=== PATIENT | female | born 1945 ===

== ENCOUNTER 2019-11-28 17:34 | Inpatient (IN) | payer MEDICARE ==
[2019-11-28] MEDS ORDERED: ZIPRASIDONE MESYLATE 20 MG VIAL IM PRN (18:14)
[2019-11-28] MEDS: traZODone 50 MG TAB PO SCH (23:22)
[2019-11-29 05:18] LABS: Bacteria,Urine 1+ /HPF (Negative); Bilirubin,Urine NEG (Negative); Blood,Urine SM (Negative); Color,Urine Yellow (Yellow); Hyaline Casts,Urine 8 /LPF; Mucus,Urine 2+ /HPF; Protein,Urine <15 mg/dL mg/dL (Negative); Urobilinogen,Urine < 2.0 mg/dL (<2.0)
[2019-11-29 05:24] LABS: Hematocrit 36.6 % (30.3-42.9); Hemoglobin 12.1 gm/dl (10.1-14.3); Mean Corpuscular HGB Conc 33 % (30-34); Mean Corpuscular Volume 89 fl (79-97); Red Blood Count 4.11 M/mm3 (3.65-5.03); Red Cell Distribution Width 15.3 % (13.2-15.2)
[2019-11-29 05:45] LABS: Platelet Count 219 K/mm3 (140-440)
[2019-11-29 06:06] LABS: Alanine Aminotransferase 29 units/L (7-56); Albumin 3.4 g/dL (3.9-5); BUN/Creatinine Ratio 10; Blood Urea Nitrogen 9 mg/dL (7-17); Calcium 8.9 mg/dL (8.4-10.2); Chol/HDL Ratio 3.97 %; HDL Cholesterol 44 mg/dL (40-59); Hemolysis Index 23; LDL Cholesterol,Direct 115 mg/dL (50-130)
[2019-11-29 06:36] LABS: Total Cells Counted 100
[2019-11-29 06:37] LABS: Ovalocytes Rare; Platelet Estimate Consistent w Auto
--- NOTE | 2019-11-29 08:08 | Consultation ---
History of Present Illness - Reason for Consult Consult date: 11/29/19 medical mx - History of Present Illness 73 y/o AA/ Finnish Female presented to the hospital with complaints of AMS with SI. Per referral; source, pt was found unresponsive at home with suspected suicide attempt as empty bottle of 3 days Lisinopril that was recently filled was found in the house. When patient was asked about that she stated that she forgot to take her medications in the morning so she decided to double her dose at night. Then she does not know what happened afterwards. Patient currently resting comfortably without any distress, denies any acute issue. Denies any suicidal ideation or any homicidal ideation. PMH of HTN, Anxiety, TIA in 2019, Surgical hx/o bilateral cataract. Family history: Unknown Social history: Lives with daughter, no history of smoking drinking or alcohol abuse. Review of System: Constitutional: no fever, no chills, no weight loss Ears, eyes, nose, mouth and throat: no nasal congestion, no nasal discharge, no sinus pressure, no vision change, no red eye. Neck: No neck pain or rigidity. Cardiovascular: No chest pain, no orthopnea, no palpitations, no leg swelling Respiratory: No shortness of breath, no cough, no congestion, no wheezing Gastrointestinal: no abdominal pain, no nausea, no vomiting Genitourinary : no dysuria, no hematuria Musculoskeletal: no joint swelling or muscle ache Integumentary: no rash, no pruritis Neurological: no parathesias, no numbness, no tingling Endocrine: no cold or heat intolerance, no polyuria or polydipsia Hematologic/Lymphatic: no easy bruising, no easy bleeding, no gland swelling Allergic/Immunologic: no urticaria, no angioedema. Medications and Allergies Allergies Allergy/AdvReac Type Severity Reaction Status Date / Time No Known Allergies Allergy Verified 11/28/19 18:05 Home Medications Medication Instructions Recorded Confirmed Last Taken Type Aspirin 81 mg PO DAILY 11/29/19 11/29/19 11/28/19 09:00 History Mirtazapine Solutab 15 tab PO HS 11/29/19 11/29/19 Unknown History NIFEdipine [Procardia Xl] 30 mg PO DAILY 11/29/19 11/29/19 11/28/19 09:00 History Restoril 7.5 mg PO HS PRN 11/29/19 11/29/19 Unknown History Active Meds: Active Medications Trazodone HCl (Desyrel) 50 mg PO QHS [facility] Last Admin: 11/28/19 23:22 Dose: 50 mg Documented by: Ziprasidone (Geodon) 10 mg IM Q6H PRN PRN Reason: Agitation Exam - Physical Exam Narrative exam: GENERAL: well-developed and well-nourished elderly -[place] female lying on bed appeared to be in no discomfort. HEENT: Normocephalic. Atraumatic. No conjunctival congestion or icterus. Patient has moist mucous membranes. NECK: Supple. Trachea midline. CHEST/LUNGS: Clear to auscultated bilaterally, breathing nonlabored. No wheezes crackles or rhonchi. HEART/CARDIOVASCULAR: Regular in rate and rhythm. S1 and S2 positive. ABDOMEN: Abdomen is soft, nontender. Patient has normal bowel sounds. SKIN: There is no rash. Warm and dry. NEURO: No focal motor deficit. Follows command. Oriented to self only MUSCULOSKELETAL: No joint effusion or tenderness. EXTRIMITY: No edema, no cyanosis or clubbing. PSYCH: Cooperative. - Constitutional Vitals: Temp Pulse Resp BP Pulse Ox 98.5 F 77 20 151/77 98 11/28/19 23:50 11/28/19 23:50 11/28/19 23:50 11/28/19 23:50 11/28/19 23:50 Results - Labs CBC & Chem 7: 11/29/19 04:59 11/29/19 04:59 Labs: Abnormal lab results 11/28/19 11/29/19 11/29/19 Range/Units 23:37 04:59 04:59 RDW 15.3 H (13.2-15.2) % Seg Neuts % (Manual) 34.0 L (40.0-70.0) % Lymphocytes % (Manual) 54.0 H (13.4-35.0) % Monocytes % (Manual) 10.0 H (0.0-7.3) % Seg Neutrophils # Man 1.7 L (1.8-7.7) K/mm3 POC Glucose 121 H (70-105) Total Protein 6.2 L (6.3-8.2) g/dL Albumin 3.4 L (3.9-5) g/dL Assessment and Plan Suicidal attempt/suicidal ideation -Management per primary Medication overdose, likely unintentional -Please rule out underlying dementia, provide supportive care Hypertension, continue home medicine. Can add lisinopril if SBP remains greater than 150 History of TIA, continue baby aspirin and low-dose statin DVT prophylaxis, ambulatory
[2019-11-29] MEDS ORDERED: RESTORIL 7.5 MG PO PRN (09:33)
[2019-11-29] MEDS ORDERED: ASPIRIN EC 81 MG TAB PO SCH (10:00)
[2019-11-29] MEDS: NIFEdipine XL 30 MG TAB PO SCH (10:28)
[2019-11-29] MEDS: ASPIRIN EC 81 MG TAB PO SCH (10:28)
[2019-11-29] MEDS: MIRTAZAPINE 15 MG TAB PO SCH (21:16)
[2019-11-29] MEDS: traZODone 50 MG TAB PO SCH (21:16)
[2019-11-29] MEDS ORDERED: TEMAZEPAM 15 MG CAP PO PRN (22:00)
--- NOTE | 2019-11-30 09:11 | History and Physical Report ---
GP History & Physical - History of Present Illness Date of admission: 11/28/19 Date of Examination: 11/29/19 Reason for Admission: Danger to self History of Present Illness: Satya Lua is a 73y/o female patient who was admitted into the hospital for suicide attempt by overdose. During my interview with the patient she was lying in bed. Awake. Calm and cooperative. She makes poor eye contact. She's a/o x 2. She's speaking at a barely audible tone. She is a poor historian. She describes her mood as "better." She says she was "brought to the hospital for medicine." She then says "my family didn't tell me why." She denies SI/HI, she replies, "no I want to live. I love Valentino." She holds up her Bible and points to the scriptures. She denies any illicit drug use. She replies, "no drugs, never." The patient says she sleeps "well" and her appetite is "good." She could not provide any past psychiatric history. PAST PSYCHIATRIC HISTORY: Unable to obtain PAST MEDICAL HISTORY: None reported Family Psychiatric History: None reported or documented SOCIAL HISTORY Unable to provide REVIEW OF SYSTEMS Constitutional: Negative for weight loss ENT: Negative for stridor Respiratory: Negative for cough or hemoptysis All other systems reviewed and are negative MENTAL STATUS EXAMINATION General Appearance: Dressed appropriately Behavior: Calm, cooperative. Mood: "better" Affect: Congruent with stated mood Speech: Normal tone and pace Thought Process: Goal oriented Thought Content: Suicidal Ideation: Denies Homicidal Ideation: Denies Hallucinations: Denies Delusions: None elicited Insight and Judgment: Limited Memory/Cognition: Limited Assessment Major Depressive Disorder, Severe, Without Psychotic Features Treatment Plan Patient will be admitted for inpatient psychiatric evaluation, medication adjustment and close monitoring The patient's behavior, mood, sleep and appetite will be closely monitored. Patient will be enrolled in individual and group therapeutic sessions and encouraged to attend. Patient will be provided with a safe and structured environment. Patient's physical health needs will be addressed by the Hospitalist. Hospitalist Consulted Labs including CBC, CMP, Lipid profile and Hemoglobin A1C ordered Social Assessment will be completed and the Rabbit Dresser will work with patient and family to ensure a suitable and safe disposition Medication adjustment will be made as clinically indicated Usual Wellness Hinduism/Preservation: Restarted Home medications The patient agreed on the treatment plan, understood the risk, benefit, alternative treatment, potential consequence of no treatment, and gave informed consent. - Certification Statement This is an acknowledgement statement that Satya Lua is a 73y/o female who requires inpatient psychiatric admission for treatment which could reasonably be expected to improve the patient's condition for Major Depressive Disorder. Estimated period of time patient will need to remain in the hospital: [7] Plan for post-hospital care: [ Outpatient] Legal Status: Voluntary Reaction to Hospitalization: Accepting Medications and Allergies Allergies Allergy/AdvReac Type Severity Reaction Status Date / Time No Known Allergies Allergy Verified 11/28/19 18:05 Home Medications Medication Instructions Recorded Confirmed Last Taken Type Aspirin 81 mg PO DAILY 11/29/19 11/29/19 11/28/19 09:00 History Mirtazapine Solutab 15 tab PO HS 11/29/19 11/29/19 Unknown History NIFEdipine [Procardia Xl] 30 mg PO DAILY 11/29/19 11/29/19 11/28/19 09:00 History Restoril 7.5 mg PO HS PRN 11/29/19 11/29/19 Unknown History Active Meds: Active Medications Aspirin (Halfprin Ec) 81 mg PO QDAY [facility] Last Admin: 11/29/19 10:28 Dose: 81 mg Documented by: Mirtazapine (Remeron) 15 mg PO QHS [facility] Last Admin: 11/29/19 21:16 Dose: 15 mg Documented by: Nifedipine (Procardia Xl) 30 mg PO DAILY [facility] Last Admin: 11/29/19 10:28 Dose: 30 mg Documented by: Temazepam (Restoril) 15 mg PO QHS PRN PRN Reason: Sleep Trazodone HCl (Desyrel) 50 mg PO QHS [facility] Last Admin: 11/29/19 21:16 Dose: 50 mg Documented by: Ziprasidone (Geodon) 10 mg IM Q6H PRN PRN Reason: Agitation Results - Results Labs/Vitals: Laboratory Last Values WBC 5.0 K/mm3 (4.5-11.0) 11/29/19 04:59 RBC 4.11 M/mm3 (3.65-5.03) 11/29/19 04:59 Hgb 12.1 gm/dl (10.1-14.3) 11/29/19 04:59 Hct 36.6 % (30.3-42.9) 11/29/19 04:59 MCV 89 fl (79-97) 11/29/19 04:59 MCH 29 pg (28-32) 11/29/19 04:59 MCHC 33 % (30-34) 11/29/19 04:59 RDW 15.3 % (13.2-15.2) H 11/29/19 04:59 Plt Count 219 K/mm3 (140-440) 11/29/19 04:59 Lymph % (Auto) [employer] 11/29/19 04:59 Add Manual Diff Complete 11/29/19 04:59 Total Counted 100 11/29/19 04:59 Seg Neutrophils % Supervisor [employer] 11/29/19 04:59 Seg Neuts % (Manual) 34.0 % (40.0-70.0) L 11/29/19 04:59 Band Neutrophils % 0 % 11/29/19 04:59 Lymphocytes % (Manual) 54.0 % (13.4-35.0) H 11/29/19 04:59 Reactive Lymphs % (Man) 0 % 11/29/19 04:59 Monocytes % (Manual) 10.0 % (0.0-7.3) H 11/29/19 04:59 Eosinophils % (Manual) 1.0 % (0.0-4.3) 11/29/19 04:59 Basophils % (Manual) 1.0 % (0.0-1.8) 11/29/19 04:59 Metamyelocytes % 0 % 11/29/19 04:59 Myelocytes % 0 % 11/29/19 04:59 Promyelocytes % 0 % 11/29/19 04:59 Blast Cells % 0 % 11/29/19 04:59 Nucleated RBC % Not Reportable 11/29/19 04:59 Seg Neutrophils # Man 1.7 K/mm3 (1.8-7.7) L 11/29/19 04:59 Band Neutrophils # 0.0 K/mm3 11/29/19 04:59 Lymphocytes # (Manual) 2.7 K/mm3 (1.2-5.4) 11/29/19 04:59 Abs React Lymphs (Man) 0.0 K/mm3 11/29/19 04:59 Monocytes # (Manual) 0.5 K/mm3 (0.0-0.8) 11/29/19 04:59 Eosinophils # (Manual) 0.1 K/mm3 (0.0-0.4) 11/29/19 04:59 Basophils # (Manual) 0.1 K/mm3 (0.0-0.1) 11/29/19 04:59 Metamyelocytes # 0.0 K/mm3 11/29/19 04:59 Myelocytes # 0.0 K/mm3 11/29/19 04:59 Promyelocytes # 0.0 K/mm3 11/29/19 04:59 Blast Cells # 0.0 K/mm3 11/29/19 04:59 WBC Morphology Not Reportable 11/29/19 04:59 Hypersegmented Neuts Not Reportable 11/29/19 04:59 Hyposegmented Neuts Not Reportable 11/29/19 04:59 Hypogranular Neuts Not Reportable 11/29/19 04:59 Smudge Cells Not Reportable 11/29/19 04:59 Toxic Granulation Not Reportable 11/29/19 04:59 Toxic Vacuolation Not Reportable 11/29/19 04:59 Dohle Bodies Not Reportable 11/29/19 04:59 Pelger-Huet Anomaly Not Reportable 11/29/19 04:59 Herlinda Rods Not Reportable 11/29/19 04:59 Platelet Estimate Consistent w auto 11/29/19 04:59 Clumped Platelets Not Reportable 11/29/19 04:59 Plt Clumps, EDTA Not Reportable 11/29/19 04:59 Large Platelets Not Reportable 11/29/19 04:59 Giant Platelets Not Reportable 11/29/19 04:59 Platelet Satelliting Not Reportable 11/29/19 04:59 Plt Morphology Comment Not Reportable 11/29/19 04:59 RBC Morphology Not Reportable 11/29/19 04:59 Dimorphic RBCs Not Reportable 11/29/19 04:59 Polychromasia Not Reportable 11/29/19 04:59 Hypochromasia Not Reportable 11/29/19 04:59 Poikilocytosis Not Reportable 11/29/19 04:59 Anisocytosis Not Reportable 11/29/19 04:59 Microcytosis Not Reportable 11/29/19 04:59 Macrocytosis Not Reportable 11/29/19 04:59 Spherocytes Not Reportable 11/29/19 04:59 Pappenheimer Bodies Not Reportable 11/29/19 04:59 Sickle Cells Not Reportable 11/29/19 04:59 Target Cells Not Reportable 11/29/19 04:59 Tear Drop Cells Not Reportable 11/29/19 04:59 Ovalocytes Rare 11/29/19 04:59 Helmet Cells Not Reportable 11/29/19 04:59 [place] Bodies Not Reportable 11/29/19 04:59 [place] Rings Not Reportable 11/29/19 04:59 [place] Cells Not Reportable 11/29/19 04:59 Bite Cells Not Reportable 11/29/19 04:59 Crenated Cell Not Reportable 11/29/19 04:59 Elliptocytes Not Reportable 11/29/19 04:59 Acanthocytes (Spur) Not Reportable 11/29/19 04:59 Rouleaux Not Reportable 11/29/19 04:59 Hemoglobin C Crystals Not Reportable 11/29/19 04:59 Schistocytes Not Reportable 11/29/19 04:59 Malaria parasites Not Reportable 11/29/19 04:59 Eleazar Bodies Not Reportable 11/29/19 04:59 Hem Pathologist Commnt No 11/29/19 04:59 Sodium 141 mmol/L (137-145) 11/29/19 04:59 Potassium 4.2 mmol/L (3.6-5.0) 11/29/19 04:59 Chloride 104.8 mmol/L (98-107) 11/29/19 04:59 Carbon Dioxide 24 mmol/L (22-30) 11/29/19 04:59 Anion Gap 16 mmol/L 11/29/19 04:59 BUN 9 mg/dL (7-17) 11/29/19 04:59 Creatinine 0.9 mg/dL (0.7-1.2) 11/29/19 04:59 Estimated GFR > 60 ml/min 11/29/19 04:59 BUN/Creatinine Ratio 10 % 11/29/19 04:59 Glucose 88 mg/dL (65-100) 11/29/19 04:59 POC Glucose 121 (70-105) H 11/28/19 23:37 Hemoglobin A1c 5.6 % (4-6) 11/29/19 04:59 Calcium 8.9 mg/dL (8.4-10.2) 11/29/19 04:59 Total Bilirubin 0.40 mg/dL (0.1-1.2) 11/29/19 04:59 AST 39 units/L (5-40) 11/29/19 04:59 ALT 29 units/L (7-56) 11/29/19 04:59 Alkaline Phosphatase 70 units/L (35-129) 11/29/19 04:59 Total Protein 6.2 g/dL (6.3-8.2) L 11/29/19 04:59 Albumin 3.4 g/dL (3.9-5) L 11/29/19 04:59 Albumin/Globulin Ratio 1.2 % 11/29/19 04:59 Triglycerides 88 mg/dL (2-149) 11/29/19 04:59 Cholesterol 175 mg/dL (50-199) 11/29/19 04:59 LDL Cholesterol Direct 115 mg/dL (50-130) 11/29/19 04:59 HDL Cholesterol 44 mg/dL (40-59) 11/29/19 04:59 Cholesterol/HDL Ratio 3.97 % 11/29/19 04:59 TSH 2.090 mlU/mL (0.270-4.200) 11/29/19 04:59 Urine Color Yellow (Yellow) 11/29/19 04:20 Urine Turbidity Clear (Clear) 11/29/19 04:20 Urine pH 5.0 (5.0-7.0) 11/29/19 04:20 Ur Specific [place] 1.013 (1.003-1.030) 11/29/19 04:20 Urine Protein <15 mg/dl mg/dL (Negative) 11/29/19 04:20 Urine Glucose (UA) Neg mg/dL (Negative) 11/29/19 04:20 Urine Ketones Neg mg/dL (Negative) 11/29/19 04:20 Urine Blood Sm (Negative) 11/29/19 04:20 Urine Nitrite Neg (Negative) 11/29/19 04:20 Urine Bilirubin Neg (Negative) 11/29/19 04:20 Urine Urobilinogen < 2.0 mg/dL (<2.0) 11/29/19 04:20 Ur Leukocyte Esterase Neg (Negative) 11/29/19 04:20 Urine WBC (Auto) 4.0 /HPF (0.0-6.0) 11/29/19 04:20 Urine RBC (Auto) 3.0 /HPF (0.0-6.0) 11/29/19 04:20 U Epithel Cells (Auto) 4.0 /HPF (0-13.0) 11/29/19 04:20 Urine Bacteria (Auto) 1+ /HPF (Negative) 11/29/19 04:20 Hyaline Casts 8 /LPF 11/29/19 04:20 Urine Mucus 2+ /HPF 11/29/19 04:20 Last Vital Signs Temp 98.6 F 11/29/19 22:00 Pulse 77 11/29/19 22:00 Resp 18 11/29/19 22:00 BP 145/68 11/29/19 22:00 Pulse Ox 97 11/29/19 22:00 Physical Examination - Constitutional Vitals: Vital Signs Temp Pulse Resp BP Pulse Ox 98.6 F 77 18 145/68 97 11/29/19 22:00 11/29/19 22:00 11/29/19 22:00 11/29/19 22:00 11/29/19 22:00 Temperature -Last 24 Hours Temperature 98.6 F Temperature 98.6 F Mental Status Exam - Vital signs Last Vital Signs Temp 98.6 F 11/29/19 22:00 Pulse 77 11/29/19 22:00 Resp 18 11/29/19 22:00 BP 145/68 11/29/19 22:00 Pulse Ox 97 11/29/19 22:00 Physician Certification - Certification Statement Physician Certification Statement: This is an acknowledgement statement that SATYA LUA is a 73 year old F who requires inpatient psychiatric admission for treatment which could reasonably be expected to improve the patient's condition for Estimated period of time patient will need to remain in the hospital: [ ] Plan for post-hospital care: [ ]
--- NOTE | 2019-11-30 09:39 | Progress Note ---
Subjective Date of service: 11/30/19 Principal diagnosis: Major Depressive Disorder Subjective Comment: During my interview with the patient today, she was sitting in the dayroom. She is a/o x 2. She is calm and cooperative. She appears withdrawn, but is more talkative today. Her affect is flat. Her tone is low The patient says her "head is hilario hazy," when asked how she was feeling. She says, "I feel tired." She says she "slept well after they gave me some medicine." She states to me, "I w ant to go home or to my daughter's house." When asking the patient about why she came to the hospital, she says "I needed medicine to get better." When asking the patient about coming here because she was wanting to harm herself, she states, "that was then." She denies SI/HI at the moment stating, "I don't feel sad. I want to live." The patient denies hallucinations of any kind. Reason for continued inpatient treatment: The patient is depressed with recent suicide attempt, and unable to care for herself PAST PSYCHIATRIC HISTORY: Unable to obtain PAST MEDICAL HISTORY: None reported Family Psychiatric History: None reported or documented SOCIAL HISTORY Unable to provide REVIEW OF SYSTEMS Constitutional: Negative for weight loss ENT: Negative for stridor Respiratory: Negative for cough or hemoptysis All other systems reviewed and are negative MENTAL STATUS EXAMINATION General Appearance: Dressed appropriately Behavior: Calm, cooperative. Poor eye contact Mood: "better" Affect: Flat Speech: Low tone Thought Process: Goal oriented Thought Content: Suicidal Ideation: Denies at the moment Homicidal Ideation: Denies Hallucinations: Denies Delusions: None elicited Insight and Judgment: Limited Memory/Cognition: Limited Assessment Major Depressive Disorder, Severe, Without Psychotic Features Treatment Plan Patient will be admitted for inpatient psychiatric evaluation, medication adjustment and close monitoring The patient's behavior, mood, sleep and appetite will be closely monitored. Patient will be enrolled in individual and group therapeutic sessions and encouraged to attend. Patient will be provided with a safe and structured environment. Patient's physical health needs will be addressed by the Hospitalist. Hospitalist Consulted Labs including CBC, CMP, Lipid profile and Hemoglobin A1C ordered Social Assessment will be completed and the Desktop Publishing Associate will work with patient and family to ensure a suitable and safe disposition Medication adjustment will be made as clinically indicated Usual Wellness Hinduism/Preservation: Zoloft 25mg po daily The patient agreed on the treatment plan, understood the risk, benefit, alternative treatment, potential consequence of no treatment, and gave informed consent. ELOS 6 days post discharge, outpatient treatment Medications and Allergies Allergies Allergy/AdvReac Type Severity Reaction Status Date / Time No Known Allergies Allergy Verified 11/28/19 18:05 Home Medications Medication Instructions Recorded Confirmed Last Taken Type Aspirin 81 mg PO DAILY 11/29/19 11/29/19 11/28/19 09:00 History Mirtazapine Solutab 15 tab PO HS 11/29/19 11/29/19 Unknown History NIFEdipine [Procardia Xl] 30 mg PO DAILY 11/29/19 11/29/19 11/28/19 09:00 History Restoril 7.5 mg PO HS PRN 11/29/19 11/29/19 Unknown History Active Meds: Active Medications Aspirin (Halfprin Ec) 81 mg PO QDAY [facility] Last Admin: 11/29/19 10:28 Dose: 81 mg Documented by: Mirtazapine (Remeron) 15 mg PO QHS [facility] Last Admin: 11/29/19 21:16 Dose: 15 mg Documented by: Nifedipine (Procardia Xl) 30 mg PO DAILY [facility] Last Admin: 11/29/19 10:28 Dose: 30 mg Documented by: Sertraline HCl (Zoloft) 25 mg PO QDAY [facility] Temazepam (Restoril) 15 mg PO QHS PRN PRN Reason: Sleep Trazodone HCl (Desyrel) 50 mg PO QHS [facility] Last Admin: 11/29/19 21:16 Dose: 50 mg Documented by: Ziprasidone (Geodon) 10 mg IM Q6H PRN PRN Reason: Agitation Results - Results Labs/Vitals: Laboratory Last Values WBC 5.0 K/mm3 (4.5-11.0) 11/29/19 04:59 RBC 4.11 M/mm3 (3.65-5.03) 11/29/19 04:59 Hgb 12.1 gm/dl (10.1-14.3) 11/29/19 04:59 Hct 36.6 % (30.3-42.9) 11/29/19 04:59 MCV 89 fl (79-97) 11/29/19 04:59 MCH 29 pg (28-32) 11/29/19 04:59 MCHC 33 % (30-34) 11/29/19 04:59 RDW 15.3 % (13.2-15.2) H 11/29/19 04:59 Plt Count 219 K/mm3 (140-440) 11/29/19 04:59 Lymph % (Auto) Linen Keeper 11/29/19 04:59 Add Manual Diff Complete 11/29/19 04:59 Total Counted 100 11/29/19 04:59 Seg Neutrophils % Linen Keeper 11/29/19 04:59 Seg Neuts % (Manual) 34.0 % (40.0-70.0) L 11/29/19 04:59 Band Neutrophils % 0 % 11/29/19 04:59 Lymphocytes % (Manual) 54.0 % (13.4-35.0) H 11/29/19 04:59 Reactive Lymphs % (Man) 0 % 11/29/19 04:59 Monocytes % (Manual) 10.0 % (0.0-7.3) H 11/29/19 04:59 Eosinophils % (Manual) 1.0 % (0.0-4.3) 11/29/19 04:59 Basophils % (Manual) 1.0 % (0.0-1.8) 11/29/19 04:59 Metamyelocytes % 0 % 11/29/19 04:59 Myelocytes % 0 % 11/29/19 04:59 Promyelocytes % 0 % 11/29/19 04:59 Blast Cells % 0 % 11/29/19 04:59 Nucleated RBC % Not Reportable 11/29/19 04:59 Seg Neutrophils # Man 1.7 K/mm3 (1.8-7.7) L 11/29/19 04:59 Band Neutrophils # 0.0 K/mm3 11/29/19 04:59 Lymphocytes # (Manual) 2.7 K/mm3 (1.2-5.4) 11/29/19 04:59 Abs React Lymphs (Man) 0.0 K/mm3 11/29/19 04:59 Monocytes # (Manual) 0.5 K/mm3 (0.0-0.8) 11/29/19 04:59 Eosinophils # (Manual) 0.1 K/mm3 (0.0-0.4) 11/29/19 04:59 Basophils # (Manual) 0.1 K/mm3 (0.0-0.1) 11/29/19 04:59 Metamyelocytes # 0.0 K/mm3 11/29/19 04:59 Myelocytes # 0.0 K/mm3 11/29/19 04:59 Promyelocytes # 0.0 K/mm3 11/29/19 04:59 Blast Cells # 0.0 K/mm3 11/29/19 04:59 WBC Morphology Not Reportable 11/29/19 04:59 Hypersegmented Neuts Not Reportable 11/29/19 04:59 Hyposegmented Neuts Not Reportable 11/29/19 04:59 Hypogranular Neuts Not Reportable 11/29/19 04:59 Smudge Cells Not Reportable 11/29/19 04:59 Toxic Granulation Not Reportable 11/29/19 04:59 Toxic Vacuolation Not Reportable 11/29/19 04:59 Dohle Bodies Not Reportable 11/29/19 04:59 Pelger-Huet Anomaly Not Reportable 11/29/19 04:59 Herlinda Rods Not Reportable 11/29/19 04:59 Platelet Estimate Consistent w auto 11/29/19 04:59 Clumped Platelets Not Reportable 11/29/19 04:59 Plt Clumps, EDTA Not Reportable 11/29/19 04:59 Large Platelets Not Reportable 11/29/19 04:59 Giant Platelets Not Reportable 11/29/19 04:59 Platelet Satelliting Not Reportable 11/29/19 04:59 Plt Morphology Comment Not Reportable 11/29/19 04:59 RBC Morphology Not Reportable 11/29/19 04:59 Dimorphic RBCs Not Reportable 11/29/19 04:59 Polychromasia Not Reportable 11/29/19 04:59 Hypochromasia Not Reportable 11/29/19 04:59 Poikilocytosis Not Reportable 11/29/19 04:59 Anisocytosis Not Reportable 11/29/19 04:59 Microcytosis Not Reportable 11/29/19 04:59 Macrocytosis Not Reportable 11/29/19 04:59 Spherocytes Not Reportable 11/29/19 04:59 Pappenheimer Bodies Not Reportable 11/29/19 04:59 Sickle Cells Not Reportable 11/29/19 04:59 Target Cells Not Reportable 11/29/19 04:59 Tear Drop Cells Not Reportable 11/29/19 04:59 Ovalocytes Rare 11/29/19 04:59 Helmet Cells Not Reportable 11/29/19 04:59 [place] Bodies Not Reportable 11/29/19 04:59 [place] Rings Not Reportable 11/29/19 04:59 [place] Cells Not Reportable 11/29/19 04:59 Bite Cells Not Reportable 11/29/19 04:59 Crenated Cell Not Reportable 11/29/19 04:59 Elliptocytes Not Reportable 11/29/19 04:59 Acanthocytes (Spur) Not Reportable 11/29/19 04:59 Rouleaux Not Reportable 11/29/19 04:59 Hemoglobin C Crystals Not Reportable 11/29/19 04:59 Schistocytes Not Reportable 11/29/19 04:59 Malaria parasites Not Reportable 11/29/19 04:59 Eleazar Bodies Not Reportable 11/29/19 04:59 Hem Pathologist Commnt No 11/29/19 04:59 Sodium 141 mmol/L (137-145) 11/29/19 04:59 Potassium 4.2 mmol/L (3.6-5.0) 11/29/19 04:59 Chloride 104.8 mmol/L (98-107) 11/29/19 04:59 Carbon Dioxide 24 mmol/L (22-30) 11/29/19 04:59 Anion Gap 16 mmol/L 11/29/19 04:59 BUN 9 mg/dL (7-17) 11/29/19 04:59 Creatinine 0.9 mg/dL (0.7-1.2) 11/29/19 04:59 Estimated GFR > 60 ml/min 11/29/19 04:59 BUN/Creatinine Ratio 10 % 11/29/19 04:59 Glucose 88 mg/dL (65-100) 11/29/19 04:59 POC Glucose 121 (70-105) H 11/28/19 23:37 Hemoglobin A1c 5.6 % (4-6) 11/29/19 04:59 Calcium 8.9 mg/dL (8.4-10.2) 11/29/19 04:59 Total Bilirubin 0.40 mg/dL (0.1-1.2) 11/29/19 04:59 AST 39 units/L (5-40) 11/29/19 04:59 ALT 29 units/L (7-56) 11/29/19 04:59 Alkaline Phosphatase 70 units/L (35-129) 11/29/19 04:59 Total Protein 6.2 g/dL (6.3-8.2) L 11/29/19 04:59 Albumin 3.4 g/dL (3.9-5) L 11/29/19 04:59 Albumin/Globulin Ratio 1.2 % 11/29/19 04:59 Triglycerides 88 mg/dL (2-149) 11/29/19 04:59 Cholesterol 175 mg/dL (50-199) 11/29/19 04:59 LDL Cholesterol Direct 115 mg/dL (50-130) 11/29/19 04:59 HDL Cholesterol 44 mg/dL (40-59) 11/29/19 04:59 Cholesterol/HDL Ratio 3.97 % 11/29/19 04:59 TSH 2.090 mlU/mL (0.270-4.200) 11/29/19 04:59 Urine Color Yellow (Yellow) 11/29/19 04:20 Urine Turbidity Clear (Clear) 11/29/19 04:20 Urine pH 5.0 (5.0-7.0) 11/29/19 04:20 Ur Specific [place] 1.013 (1.003-1.030) 11/29/19 04:20 Urine Protein <15 mg/dl mg/dL (Negative) 11/29/19 04:20 Urine Glucose (UA) Neg mg/dL (Negative) 11/29/19 04:20 Urine Ketones Neg mg/dL (Negative) 11/29/19 04:20 Urine Blood Sm (Negative) 11/29/19 04:20 Urine Nitrite Neg (Negative) 11/29/19 04:20 Urine Bilirubin Neg (Negative) 11/29/19 04:20 Urine Urobilinogen < 2.0 mg/dL (<2.0) 11/29/19 04:20 Ur Leukocyte Esterase Neg (Negative) 11/29/19 04:20 Urine WBC (Auto) 4.0 /HPF (0.0-6.0) 11/29/19 04:20 Urine RBC (Auto) 3.0 /HPF (0.0-6.0) 11/29/19 04:20 U Epithel Cells (Auto) 4.0 /HPF (0-13.0) 11/29/19 04:20 Urine Bacteria (Auto) 1+ /HPF (Negative) 11/29/19 04:20 Hyaline Casts 8 /LPF 11/29/19 04:20 Urine Mucus 2+ /HPF 11/29/19 04:20 Last Vital Signs Temp 98.6 F 11/29/19 22:00 Pulse 77 11/29/19 22:00 Resp 18 11/29/19 22:00 BP 145/68 11/29/19 22:00 Pulse Ox 97 11/29/19 22:00
[2019-11-30] MEDS: ASPIRIN EC 81 MG TAB PO SCH (10:37)
[2019-11-30] MEDS: NIFEdipine XL 30 MG TAB PO SCH (10:37)
[2019-11-30] MEDS: SERTRALINE 25 MG TAB PO SCH (10:37)
[2019-11-30] MEDS: MIRTAZAPINE 15 MG TAB PO SCH (21:37)
[2019-11-30] MEDS: traZODone 50 MG TAB PO SCH (21:37)
[2019-12-01] MEDS: NIFEdipine XL 30 MG TAB PO SCH (11:55)
[2019-12-01] MEDS: ASPIRIN EC 81 MG TAB PO SCH (11:55)
[2019-12-01] MEDS: SERTRALINE 25 MG TAB PO SCH (11:55)
[2019-12-01] MEDS: traZODone 50 MG TAB PO SCH (21:16)
[2019-12-01] MEDS: MIRTAZAPINE 15 MG TAB PO SCH (21:16)
--- NOTE | 2019-12-02 08:05 | Progress Note ---
Subjective Date of service: 12/02/19 Principal diagnosis: Major Depressive Disorder Subjective Comment: During my interview with the patient today, she is walking around in her room. She is smiling. She is a/o x 3. She makes good eye contact. She is calm and cooperative. She says she "slept well last night." The patient states "I feel better. I've been praying," when asked how she was doing. She denies SI/HI, stating "I love my life." When asked about the reason she was admitted, the patient stated, "I came here to feel better. I guess I took some pills." She denies hallucinations of any kind. Reason for continued inpatient treatment: The patient has improved, but at times seem to have some underlying depression. She is unable to care for herself REVIEW OF SYSTEMS Constitutional: Negative for weight loss ENT: Negative for stridor Respiratory: Negative for cough or hemoptysis All other systems reviewed and are negative MENTAL STATUS EXAMINATION General Appearance: Dressed appropriately Behavior: Calm, cooperative. Good eye contact Mood: "better" Affect: congruent with stated mood Speech: Low tone Thought Process: Goal oriented Thought Content: Suicidal Ideation: Denies Homicidal Ideation: Denies Hallucinations: Denies Delusions: None elicited Insight and Judgment: Limited Memory/Cognition: Limited Assessment Major Depressive Disorder, Severe, Without Psychotic Features Treatment Plan Patient will be admitted for inpatient psychiatric evaluation, medication adjustment and close monitoring The patient's behavior, mood, sleep and appetite will be closely monitored. Patient will be enrolled in individual and group therapeutic sessions and encouraged to attend. Patient will be provided with a safe and structured environment. Patient's physical health needs will be addressed by the Hospitalist. Hospitalist Consulted Labs including CBC, CMP, Lipid profile and Hemoglobin A1C ordered Social Assessment will be completed and the Finish Production Manager will work with patient and family to ensure a suitable and safe disposition Medication adjustment will be made as clinically indicated Usual Wellness Hindu/Preservation: Increased Zoloft 50mg po daily for underlying depression The patient agreed on the treatment plan, understood the risk, benefit, alternative treatment, potential consequence of no treatment, and gave informed consent. ELOS 4 days post discharge, outpatient treatment Medications and Allergies Allergies Allergy/AdvReac Type Severity Reaction Status Date / Time No Known Allergies Allergy Verified 11/28/19 18:05 Home Medications Medication Instructions Recorded Confirmed Last Taken Type Aspirin 81 mg PO DAILY 11/29/19 11/29/19 11/28/19 09:00 History Mirtazapine Solutab 15 tab PO HS 11/29/19 11/29/19 Unknown History NIFEdipine [Procardia Xl] 30 mg PO DAILY 11/29/19 11/29/19 11/28/19 09:00 History Restoril 7.5 mg PO HS PRN 11/29/19 11/29/19 Unknown History Active Meds: Active Medications Aspirin (Halfprin Ec) 81 mg PO QDAY [facility] Last Admin: 12/01/19 11:55 Dose: 81 mg Documented by: Mirtazapine (Remeron) 15 mg PO QHS [facility] Last Admin: 12/01/19 21:16 Dose: 15 mg Documented by: Nifedipine (Procardia Xl) 30 mg PO DAILY [facility] Last Admin: 12/01/19 11:55 Dose: 30 mg Documented by: Sertraline HCl (Zoloft) 25 mg PO QDAY [facility] Last Admin: 12/01/19 11:55 Dose: 25 mg Documented by: Temazepam (Restoril) 15 mg PO QHS PRN PRN Reason: Sleep Trazodone HCl (Desyrel) 50 mg PO QHS [facility] Last Admin: 12/01/19 21:16 Dose: 50 mg Documented by: Ziprasidone (Geodon) 10 mg IM Q6H PRN PRN Reason: Agitation Results - Results Labs/Vitals: Laboratory Last Values WBC 5.0 K/mm3 (4.5-11.0) 11/29/19 04:59 RBC 4.11 M/mm3 (3.65-5.03) 11/29/19 04:59 Hgb 12.1 gm/dl (10.1-14.3) 11/29/19 04:59 Hct 36.6 % (30.3-42.9) 11/29/19 04:59 MCV 89 fl (79-97) 11/29/19 04:59 MCH 29 pg (28-32) 11/29/19 04:59 MCHC 33 % (30-34) 11/29/19 04:59 RDW 15.3 % (13.2-15.2) H 11/29/19 04:59 Plt Count 219 K/mm3 (140-440) 11/29/19 04:59 Lymph % (Auto) Informatics Physician 11/29/19 04:59 Add Manual Diff Complete 11/29/19 04:59 Total Counted 100 11/29/19 04:59 Seg Neutrophils % Informatics Physician 11/29/19 04:59 Seg Neuts % (Manual) 34.0 % (40.0-70.0) L 11/29/19 04:59 Band Neutrophils % 0 % 11/29/19 04:59 Lymphocytes % (Manual) 54.0 % (13.4-35.0) H 11/29/19 04:59 Reactive Lymphs % (Man) 0 % 11/29/19 04:59 Monocytes % (Manual) 10.0 % (0.0-7.3) H 11/29/19 04:59 Eosinophils % (Manual) 1.0 % (0.0-4.3) 11/29/19 04:59 Basophils % (Manual) 1.0 % (0.0-1.8) 11/29/19 04:59 Metamyelocytes % 0 % 11/29/19 04:59 Myelocytes % 0 % 11/29/19 04:59 Promyelocytes % 0 % 11/29/19 04:59 Blast Cells % 0 % 11/29/19 04:59 Nucleated RBC % Not Reportable 11/29/19 04:59 Seg Neutrophils # Man 1.7 K/mm3 (1.8-7.7) L 11/29/19 04:59 Band Neutrophils # 0.0 K/mm3 11/29/19 04:59 Lymphocytes # (Manual) 2.7 K/mm3 (1.2-5.4) 11/29/19 04:59 Abs React Lymphs (Man) 0.0 K/mm3 11/29/19 04:59 Monocytes # (Manual) 0.5 K/mm3 (0.0-0.8) 11/29/19 04:59 Eosinophils # (Manual) 0.1 K/mm3 (0.0-0.4) 11/29/19 04:59 Basophils # (Manual) 0.1 K/mm3 (0.0-0.1) 11/29/19 04:59 Metamyelocytes # 0.0 K/mm3 11/29/19 04:59 Myelocytes # 0.0 K/mm3 11/29/19 04:59 Promyelocytes # 0.0 K/mm3 11/29/19 04:59 Blast Cells # 0.0 K/mm3 11/29/19 04:59 WBC Morphology Not Reportable 11/29/19 04:59 Hypersegmented Neuts Not Reportable 11/29/19 04:59 Hyposegmented Neuts Not Reportable 11/29/19 04:59 Hypogranular Neuts Not Reportable 11/29/19 04:59 Smudge Cells Not Reportable 11/29/19 04:59 Toxic Granulation Not Reportable 11/29/19 04:59 Toxic Vacuolation Not Reportable 11/29/19 04:59 Dohle Bodies Not Reportable 11/29/19 04:59 Pelger-Huet Anomaly Not Reportable 11/29/19 04:59 Herlinda Rods Not Reportable 11/29/19 04:59 Platelet Estimate Consistent w auto 11/29/19 04:59 Clumped Platelets Not Reportable 11/29/19 04:59 Plt Clumps, EDTA Not Reportable 11/29/19 04:59 Large Platelets Not Reportable 11/29/19 04:59 Giant Platelets Not Reportable 11/29/19 04:59 Platelet Satelliting Not Reportable 11/29/19 04:59 Plt Morphology Comment Not Reportable 11/29/19 04:59 RBC Morphology Not Reportable 11/29/19 04:59 Dimorphic RBCs Not Reportable 11/29/19 04:59 Polychromasia Not Reportable 11/29/19 04:59 Hypochromasia Not Reportable 11/29/19 04:59 Poikilocytosis Not Reportable 11/29/19 04:59 Anisocytosis Not Reportable 11/29/19 04:59 Microcytosis Not Reportable 11/29/19 04:59 Macrocytosis Not Reportable 11/29/19 04:59 Spherocytes Not Reportable 11/29/19 04:59 Pappenheimer Bodies Not Reportable 11/29/19 04:59 Sickle Cells Not Reportable 11/29/19 04:59 Target Cells Not Reportable 11/29/19 04:59 Tear Drop Cells Not Reportable 11/29/19 04:59 Ovalocytes Rare 11/29/19 04:59 Helmet Cells Not Reportable 11/29/19 04:59 [place] Bodies Not Reportable 11/29/19 04:59 [place] Rings Not Reportable 11/29/19 04:59 [place] Cells Not Reportable 11/29/19 04:59 Bite Cells Not Reportable 11/29/19 04:59 Crenated Cell Not Reportable 11/29/19 04:59 Elliptocytes Not Reportable 11/29/19 04:59 Acanthocytes (Spur) Not Reportable 11/29/19 04:59 Rouleaux Not Reportable 11/29/19 04:59 Hemoglobin C Crystals Not Reportable 11/29/19 04:59 Schistocytes Not Reportable 11/29/19 04:59 Malaria parasites Not Reportable 11/29/19 04:59 Eleazar Bodies Not Reportable 11/29/19 04:59 Hem Pathologist Commnt No 11/29/19 04:59 Sodium 141 mmol/L (137-145) 11/29/19 04:59 Potassium 4.2 mmol/L (3.6-5.0) 11/29/19 04:59 Chloride 104.8 mmol/L (98-107) 11/29/19 04:59 Carbon Dioxide 24 mmol/L (22-30) 11/29/19 04:59 Anion Gap 16 mmol/L 11/29/19 04:59 BUN 9 mg/dL (7-17) 11/29/19 04:59 Creatinine 0.9 mg/dL (0.7-1.2) 11/29/19 04:59 Estimated GFR > 60 ml/min 11/29/19 04:59 BUN/Creatinine Ratio 10 % 11/29/19 04:59 Glucose 88 mg/dL (65-100) 11/29/19 04:59 POC Glucose 121 (70-105) H 11/28/19 23:37 Hemoglobin A1c 5.6 % (4-6) 11/29/19 04:59 Calcium 8.9 mg/dL (8.4-10.2) 11/29/19 04:59 Total Bilirubin 0.40 mg/dL (0.1-1.2) 11/29/19 04:59 AST 39 units/L (5-40) 11/29/19 04:59 ALT 29 units/L (7-56) 11/29/19 04:59 Alkaline Phosphatase 70 units/L (35-129) 11/29/19 04:59 Total Protein 6.2 g/dL (6.3-8.2) L 11/29/19 04:59 Albumin 3.4 g/dL (3.9-5) L 11/29/19 04:59 Albumin/Globulin Ratio 1.2 % 11/29/19 04:59 Triglycerides 88 mg/dL (2-149) 11/29/19 04:59 Cholesterol 175 mg/dL (50-199) 11/29/19 04:59 LDL Cholesterol Direct 115 mg/dL (50-130) 11/29/19 04:59 HDL Cholesterol 44 mg/dL (40-59) 11/29/19 04:59 Cholesterol/HDL Ratio 3.97 % 11/29/19 04:59 TSH 2.090 mlU/mL (0.270-4.200) 11/29/19 04:59 Urine Color Yellow (Yellow) 11/29/19 04:20 Urine Turbidity Clear (Clear) 11/29/19 04:20 Urine pH 5.0 (5.0-7.0) 11/29/19 04:20 Ur Specific [place] 1.013 (1.003-1.030) 11/29/19 04:20 Urine Protein <15 mg/dl mg/dL (Negative) 11/29/19 04:20 Urine Glucose (UA) Neg mg/dL (Negative) 11/29/19 04:20 Urine Ketones Neg mg/dL (Negative) 11/29/19 04:20 Urine Blood Sm (Negative) 11/29/19 04:20 Urine Nitrite Neg (Negative) 11/29/19 04:20 Urine Bilirubin Neg (Negative) 11/29/19 04:20 Urine Urobilinogen < 2.0 mg/dL (<2.0) 11/29/19 04:20 Ur Leukocyte Esterase Neg (Negative) 11/29/19 04:20 Urine WBC (Auto) 4.0 /HPF (0.0-6.0) 11/29/19 04:20 Urine RBC (Auto) 3.0 /HPF (0.0-6.0) 11/29/19 04:20 U Epithel Cells (Auto) 4.0 /HPF (0-13.0) 11/29/19 04:20 Urine Bacteria (Auto) 1+ /HPF (Negative) 11/29/19 04:20 Hyaline Casts 8 /LPF 11/29/19 04:20 Urine Mucus 2+ /HPF 11/29/19 04:20 Last Vital Signs Temp 98.5 F 12/02/19 07:08 Pulse 65 12/02/19 07:08 Resp 18 12/02/19 07:08 BP 155/71 12/02/19 07:08 Pulse Ox 97 12/02/19 07:08
--- NOTE | 2019-12-02 08:12 | Progress Note ---
Subjective Date of service: 12/01/19 Principal diagnosis: Major Depressive Disorder Subjective Comment: I reviewed the patient's medical record and discussed the patient's progress with the nursing staff. The nurse caring for the patient states she is hyper- yazidi. During my interview with the patient today, she is walking around in her room. She is a/o x 3. She makes fair eye contact. Her affect is flat. She says she slept "okay." The patient states "I feel better when asked." She denies SI/HI, stating, "No, I don't want to hurt myself. I want to go home." She denies hallucination of any kind, stating, "no, I pray. I don't hear things like that." She then says, "Valentino says pray. I miss my children." Reason for continued inpatient treatment: The patient had a recent suicide attempt and has underlying depression. She is improving but needs continued shahana se monitoring for stabilization. She is unable to care for herself. REVIEW OF SYSTEMS Constitutional: Negative for weight loss ENT: Negative for stridor Respiratory: Negative for cough or hemoptysis All other systems reviewed and are negative MENTAL STATUS EXAMINATION General Appearance: Dressed appropriately Behavior: Calm, cooperative. fair eye contact Mood: "better" Affect: flat Speech: Low tone Thought Process: Goal oriented Thought Content: Suicidal Ideation: Denies Homicidal Ideation: Denies Hallucinations: Denies Delusions: None elicited Insight and Judgment: Limited Memory/Cognition: Limited Assessment Major Depressive Disorder, Severe, Without Psychotic Features Treatment Plan Patient will be admitted for inpatient psychiatric evaluation, medication adjustment and close monitoring The patient's behavior, mood, sleep and appetite will be closely monitored. Patient will be enrolled in individual and group therapeutic sessions and encouraged to attend. Patient will be provided with a safe and structured environment. Patient's physical health needs will be addressed by the Hospitalist. Hospitalist Consulted Labs including CBC, CMP, Lipid profile and Hemoglobin A1C ordered Social Assessment will be completed and the Washer Machine will work with patient and family to ensure a suitable and safe disposition Medication adjustment will be made as clinically indicated Usual Wellness Confucianist/Preservation: Zoloft 25mg po daily for underlying depression The patient agreed on the treatment plan, understood the risk, benefit, alternative treatment, potential consequence of no treatment, and gave informed consent. ELOS 5 days post discharge, outpatient treatment Medications and Allergies Allergies Allergy/AdvReac Type Severity Reaction Status Date / Time No Known Allergies Allergy Verified 11/28/19 18:05 Home Medications Medication Instructions Recorded Confirmed Last Taken Type Aspirin 81 mg PO DAILY 11/29/19 11/29/19 11/28/19 09:00 History Mirtazapine Solutab 15 tab PO HS 11/29/19 11/29/19 Unknown History NIFEdipine [Procardia Xl] 30 mg PO DAILY 11/29/19 11/29/19 11/28/19 09:00 History Restoril 7.5 mg PO HS PRN 11/29/19 11/29/19 Unknown History Active Meds: Active Medications Aspirin (Halfprin Ec) 81 mg PO QDAY [facility] Last Admin: 12/01/19 11:55 Dose: 81 mg Documented by: Mirtazapine (Remeron) 15 mg PO QHS [facility] Last Admin: 12/01/19 21:16 Dose: 15 mg Documented by: Nifedipine (Procardia Xl) 30 mg PO DAILY [facility] Last Admin: 12/01/19 11:55 Dose: 30 mg Documented by: Sertraline HCl (Zoloft) 50 mg PO QDAY [facility] Temazepam (Restoril) 15 mg PO QHS PRN PRN Reason: Sleep Trazodone HCl (Desyrel) 50 mg PO QHS [facility] Last Admin: 12/01/19 21:16 Dose: 50 mg Documented by: Ziprasidone (Geodon) 10 mg IM Q6H PRN PRN Reason: Agitation Results - Results Labs/Vitals: Laboratory Last Values WBC 5.0 K/mm3 (4.5-11.0) 11/29/19 04:59 RBC 4.11 M/mm3 (3.65-5.03) 11/29/19 04:59 Hgb 12.1 gm/dl (10.1-14.3) 11/29/19 04:59 Hct 36.6 % (30.3-42.9) 11/29/19 04:59 MCV 89 fl (79-97) 11/29/19 04:59 MCH 29 pg (28-32) 11/29/19 04:59 MCHC 33 % (30-34) 11/29/19 04:59 RDW 15.3 % (13.2-15.2) H 11/29/19 04:59 Plt Count 219 K/mm3 (140-440) 11/29/19 04:59 Lymph % (Auto) [employer] Sales Engineer 11/29/19 04:59 Add Manual Diff Complete 11/29/19 04:59 Total Counted 100 11/29/19 04:59 Seg Neutrophils % [employer]eron[employer] Products Sales Engineer 11/29/19 04:59 Seg Neuts % (Manual) 34.0 % (40.0-70.0) L 11/29/19 04:59 Band Neutrophils % 0 % 11/29/19 04:59 Lymphocytes % (Manual) 54.0 % (13.4-35.0) H 11/29/19 04:59 Reactive Lymphs % (Man) 0 % 11/29/19 04:59 Monocytes % (Manual) 10.0 % (0.0-7.3) H 11/29/19 04:59 Eosinophils % (Manual) 1.0 % (0.0-4.3) 11/29/19 04:59 Basophils % (Manual) 1.0 % (0.0-1.8) 11/29/19 04:59 Metamyelocytes % 0 % 11/29/19 04:59 Myelocytes % 0 % 11/29/19 04:59 Promyelocytes % 0 % 11/29/19 04:59 Blast Cells % 0 % 11/29/19 04:59 Nucleated RBC % Not Reportable 11/29/19 04:59 Seg Neutrophils # Man 1.7 K/mm3 (1.8-7.7) L 11/29/19 04:59 Band Neutrophils # 0.0 K/mm3 11/29/19 04:59 Lymphocytes # (Manual) 2.7 K/mm3 (1.2-5.4) 11/29/19 04:59 Abs React Lymphs (Man) 0.0 K/mm3 11/29/19 04:59 Monocytes # (Manual) 0.5 K/mm3 (0.0-0.8) 11/29/19 04:59 Eosinophils # (Manual) 0.1 K/mm3 (0.0-0.4) 11/29/19 04:59 Basophils # (Manual) 0.1 K/mm3 (0.0-0.1) 11/29/19 04:59 Metamyelocytes # 0.0 K/mm3 11/29/19 04:59 Myelocytes # 0.0 K/mm3 11/29/19 04:59 Promyelocytes # 0.0 K/mm3 11/29/19 04:59 Blast Cells # 0.0 K/mm3 11/29/19 04:59 WBC Morphology Not Reportable 11/29/19 04:59 Hypersegmented Neuts Not Reportable 11/29/19 04:59 Hyposegmented Neuts Not Reportable 11/29/19 04:59 Hypogranular Neuts Not Reportable 11/29/19 04:59 Smudge Cells Not Reportable 11/29/19 04:59 Toxic Granulation Not Reportable 11/29/19 04:59 Toxic Vacuolation Not Reportable 11/29/19 04:59 Dohle Bodies Not Reportable 11/29/19 04:59 Pelger-Huet Anomaly Not Reportable 11/29/19 04:59 Herlinda Rods Not Reportable 11/29/19 04:59 Platelet Estimate Consistent w auto 11/29/19 04:59 Clumped Platelets Not Reportable 11/29/19 04:59 Plt Clumps, EDTA Not Reportable 11/29/19 04:59 Large Platelets Not Reportable 11/29/19 04:59 Giant Platelets Not Reportable 11/29/19 04:59 Platelet Satelliting Not Reportable 11/29/19 04:59 Plt Morphology Comment Not Reportable 11/29/19 04:59 RBC Morphology Not Reportable 11/29/19 04:59 Dimorphic RBCs Not Reportable 11/29/19 04:59 Polychromasia Not Reportable 11/29/19 04:59 Hypochromasia Not Reportable 11/29/19 04:59 Poikilocytosis Not Reportable 11/29/19 04:59 Anisocytosis Not Reportable 11/29/19 04:59 Microcytosis Not Reportable 11/29/19 04:59 Macrocytosis Not Reportable 11/29/19 04:59 Spherocytes Not Reportable 11/29/19 04:59 Pappenheimer Bodies Not Reportable 11/29/19 04:59 Sickle Cells Not Reportable 11/29/19 04:59 Target Cells Not Reportable 11/29/19 04:59 Tear Drop Cells Not Reportable 11/29/19 04:59 Ovalocytes Rare 11/29/19 04:59 Helmet Cells Not Reportable 11/29/19 04:59 [place] Bodies Not Reportable 11/29/19 04:59 [place] Rings Not Reportable 11/29/19 04:59 [place] Cells Not Reportable 11/29/19 04:59 Bite Cells Not Reportable 11/29/19 04:59 Crenated Cell Not Reportable 11/29/19 04:59 Elliptocytes Not Reportable 11/29/19 04:59 Acanthocytes (Spur) Not Reportable 11/29/19 04:59 Rouleaux Not Reportable 11/29/19 04:59 Hemoglobin C Crystals Not Reportable 11/29/19 04:59 Schistocytes Not Reportable 11/29/19 04:59 Malaria parasites Not Reportable 11/29/19 04:59 Eleazar Bodies Not Reportable 11/29/19 04:59 Hem Pathologist Commnt No 11/29/19 04:59 Sodium 141 mmol/L (137-145) 11/29/19 04:59 Potassium 4.2 mmol/L (3.6-5.0) 11/29/19 04:59 Chloride 104.8 mmol/L (98-107) 11/29/19 04:59 Carbon Dioxide 24 mmol/L (22-30) 11/29/19 04:59 Anion Gap 16 mmol/L 11/29/19 04:59 BUN 9 mg/dL (7-17) 11/29/19 04:59 Creatinine 0.9 mg/dL (0.7-1.2) 11/29/19 04:59 Estimated GFR > 60 ml/min 11/29/19 04:59 BUN/Creatinine Ratio 10 % 11/29/19 04:59 Glucose 88 mg/dL (65-100) 11/29/19 04:59 POC Glucose 121 (70-105) H 11/28/19 23:37 Hemoglobin A1c 5.6 % (4-6) 11/29/19 04:59 Calcium 8.9 mg/dL (8.4-10.2) 11/29/19 04:59 Total Bilirubin 0.40 mg/dL (0.1-1.2) 11/29/19 04:59 AST 39 units/L (5-40) 11/29/19 04:59 ALT 29 units/L (7-56) 11/29/19 04:59 Alkaline Phosphatase 70 units/L (35-129) 11/29/19 04:59 Total Protein 6.2 g/dL (6.3-8.2) L 11/29/19 04:59 Albumin 3.4 g/dL (3.9-5) L 11/29/19 04:59 Albumin/Globulin Ratio 1.2 % 11/29/19 04:59 Triglycerides 88 mg/dL (2-149) 11/29/19 04:59 Cholesterol 175 mg/dL (50-199) 11/29/19 04:59 LDL Cholesterol Direct 115 mg/dL (50-130) 11/29/19 04:59 HDL Cholesterol 44 mg/dL (40-59) 11/29/19 04:59 Cholesterol/HDL Ratio 3.97 % 11/29/19 04:59 TSH 2.090 mlU/mL (0.270-4.200) 11/29/19 04:59 Urine Color Yellow (Yellow) 11/29/19 04:20 Urine Turbidity Clear (Clear) 11/29/19 04:20 Urine pH 5.0 (5.0-7.0) 11/29/19 04:20 Ur Specific [place] 1.013 (1.003-1.030) 11/29/19 04:20 Urine Protein <15 mg/dl mg/dL (Negative) 11/29/19 04:20 Urine Glucose (UA) Neg mg/dL (Negative) 11/29/19 04:20 Urine Ketones Neg mg/dL (Negative) 11/29/19 04:20 Urine Blood Sm (Negative) 11/29/19 04:20 Urine Nitrite Neg (Negative) 11/29/19 04:20 Urine Bilirubin Neg (Negative) 11/29/19 04:20 Urine Urobilinogen < 2.0 mg/dL (<2.0) 11/29/19 04:20 Ur Leukocyte Esterase Neg (Negative) 11/29/19 04:20 Urine WBC (Auto) 4.0 /HPF (0.0-6.0) 11/29/19 04:20 Urine RBC (Auto) 3.0 /HPF (0.0-6.0) 11/29/19 04:20 U Epithel Cells (Auto) 4.0 /HPF (0-13.0) 11/29/19 04:20 Urine Bacteria (Auto) 1+ /HPF (Negative) 11/29/19 04:20 Hyaline Casts 8 /LPF 11/29/19 04:20 Urine Mucus 2+ /HPF 11/29/19 04:20 Last Vital Signs Temp 98.5 F 12/02/19 07:08 Pulse 65 12/02/19 07:08 Resp 18 12/02/19 07:08 BP 155/71 12/02/19 07:08 Pulse Ox 97 12/02/19 07:08
[2019-12-02] MEDS ORDERED: SERTRALINE 25 MG TAB PO SCH (09:00)
[2019-12-02] MEDS: ASPIRIN EC 81 MG TAB PO SCH (09:31)
[2019-12-02] MEDS: NIFEdipine XL 30 MG TAB PO SCH (09:31)
[2019-12-02] MEDS ORDERED: SERTRALINE 50 MG TAB PO SCH (10:00)
[2019-12-02] MEDS: LISINOPRIL 10 MG TAB PO SCH (14:38)
[2019-12-02] MEDS: traZODone 50 MG TAB PO SCH (21:29)
[2019-12-02] MEDS: MIRTAZAPINE 15 MG TAB PO SCH (21:29)
--- NOTE | 2019-12-03 07:07 | Progress Note ---
Subjective Date of service: 12/03/19 Principal diagnosis: Major Depressive Disorder Subjective Comment: Per Nurse Note: Patient has been pleasant and cooperative with interactions today. She was medication compliant. She enjoyed speaking with her daughter on the phone. Patient denies si/hi/ah/vh. Her appetite is good. She has taken one nap today. Will continue to monitor patient for safety. Per Provider: Patient was seen in a quiet room today, patient informed to this provider that she knows why she is here was brought in by family. Patient reports she experiences sadness when she does not have anyone to talk to because she mostly exchange between visiting either of her 3 daughters. Patient reports family makes her happy most especially when she is with her grandchildren. She denies SI, HI, but persistent down mood. Per Collateral: Daughter reports the COVID situation has worsened mums mental status, she has been more paranoid about government attempt to control residents, the isolation restrictions has worsened her ability to go about and go to places she normally likes and the fact that she lost a very close friend of hers whom she normally talks to besides family took a heavy toll. She reports poor sleep by mum when she spoke to her on phone yesterday, anxiety and concerns for depression and mental instability, daughter would like medication management Reason for continued inpatient treatment: Persistent depressed mood with insomnia, based on collateral information from daughter, high risk of relapse, patient needs to be monitored for mood stability. At this time, she is unable to care for herself MENTAL STATUS EXAMINATION General Appearance and Behavior: Age appropriate, poor/fair/good hygiene, wearing appropriate clothes, lying in bed, good/poor eye contact, cooperative/uncooperative with questioning and polite/irritable Cooperation: Participating/engaged, Withdrawn, Isolative, Threatening, Cooperative, Hostile and Guarded Psychomotor Behavior: Psychomotor agitation, psychomotor retardation, unremarkable and within normal limits Mood: Good, OK, Anxious, Depressed, Great, I don't know and so-so Affect and affective range: Angry, anxious, constricted, decreased range, depressed, dysthymic, euphoric, euthymic, irritable, labile and sad Thought Process: Fluent/Logical, Tangential, Circumstantial, Perseverative, Illogical, Goal-directed, Rambling, Pressured, Blocked, Fragmented and Loose associations Thought Content: Within reality, Poverty, Obsessions, Flight of ideas, Illogical, Grandiose, Phobia Paranoid, Ideas of reference, Hallucinations including auditory, visual, tactile and olfactory, Hopelessness, Helplessness, Phobia and Paranoid Speech: Normal volume, Regular rate and rhythm, pressured, loud volume, soft volume, stutter, paucity of speech, difficulty to understand, abnormalities in production of speech, confused and blocking Intellectual Functioning: Average Suicidal Ideation: Denies SI/Suicidal Homicidal Ideation: Denies HI/Homicidal Impulse Control: Impaired/Unimpaired Insight and Judgment: Normal insight and judgment, Limited insight and judgment, Impaired Memory: Normal, Short term memory intact, Short term memory impaired, 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, alf memory impaired, Prospective memory intact and Prospective memory impaired Attention: Normal, Distractible, Sustained attention intact, Sustained attention impaired, Divided attention intact and Divided attention impaired Orientation: Alert, oriented, anxious, confused, delirious and demented Assessment and Plan - Patient Problems (1) Major depressive disorder Current Visit: Yes Status: Acute (2) Generalized anxiety disorder Current Visit: Yes Status: Acute (3) Insomnia due to psychological stress Current Visit: Yes Status: Acute Medications and Allergies Allergies Allergy/AdvReac Type Severity Reaction Status Date / Time No Known Allergies Allergy Verified 11/28/19 18:05 Treatment Plan: Medication adjustment: Zoloft 50 mg and Buproprion as adjunct for MDD with low interest (will activate), Ambien 5mg for insomnia, Vistaril 50 PRN for anxiety Due to the psychiatric conditions and treatment listed in the Assessment and Plan - the patient requires continued hospitalization. Will continue inpatient treatment to allow for medication adjustment and monitoring. Will continue q15 min safety checks. Will encourage the use of environmental modifications and non-pharmacologic approaches for the management of behavioral and psychological symptoms. Will continue current psych medications Monitor for medication side effects. Most recent medication adjustments: The patient will continue on medications for physical illnesses, and Hospitalist will closely monitor these Continue intensive physical and occupational therapies. Monitor patient's mood, sleep, appetite, and behavior closely. Encourage patient to participate in individual and group therapeutic sessions on the [place]ore. Will provide a safe and therapeutic environment for patient. The patient agreed on the treatment plan, understood the risk, benefit, alternative treatment, potential consequence of no treatment, and gave informed consent. SHAUNAOS 3 days post discharge, outpatient treatment Assessment and Plan - Patient Problems (1) Major depressive disorder Current Visit: Yes Status: Acute (2) Generalized anxiety disorder Current Visit: Yes Status: Acute (3) Insomnia due to psychological stress Current Visit: Yes Status: Acute Medications and Allergies Allergies Allergy/AdvReac Type Severity Reaction Status Date / Time No Known Allergies Allergy Verified 11/28/19 18:05 Home Medications Medication Instructions Recorded Confirmed Last Taken Type Aspirin 81 mg PO DAILY 11/29/19 11/29/19 11/28/19 09:00 History Mirtazapine Solutab 15 tab PO HS 11/29/19 11/29/19 Unknown History NIFEdipine [Procardia Xl] 30 mg PO DAILY 11/29/19 11/29/19 11/28/19 09:00 History Restoril 7.5 mg PO HS PRN 11/29/19 11/29/19 Unknown History Active Meds: Active Medications Aspirin (Halfprin Ec) 81 mg PO QDAY [facility] Last Admin: 12/02/19 09:31 Dose: 81 mg Documented by: Atorvastatin Calcium (Lipitor) 20 mg PO QHS [facility] Last Admin: 12/02/19 21:29 Dose: 20 mg Documented by: Lisinopril (Zestril) 10 mg PO QDAY [facility] Last Admin: 12/02/19 14:38 Dose: 10 mg Documented by: Mirtazapine (Remeron) 15 mg PO QHS [facility] Last Admin: 12/02/19 21:29 Dose: 15 mg Documented by: Nifedipine (Procardia Xl) 30 mg PO DAILY [facility] Last Admin: 12/02/19 09:31 Dose: 30 mg Documented by: Sertraline HCl (Zoloft) 50 mg PO QDAY [facility] Last Admin: 12/02/19 09:31 Dose: 50 mg Documented by: Temazepam (Restoril) 15 mg PO QHS PRN PRN Reason: Sleep Trazodone HCl (Desyrel) 50 mg PO QHS [facility] Last Admin: 12/02/19 21:29 Dose: 50 mg Documented by: Ziprasidone (Geodon) 10 mg IM Q6H PRN PRN Reason: Agitation Results - Results Labs/Vitals: Laboratory Last Values WBC 5.0 K/mm3 (4.5-11.0) 11/29/19 04:59 RBC 4.11 M/mm3 (3.65-5.03) 11/29/19 04:59 Hgb 12.1 gm/dl (10.1-14.3) 11/29/19 04:59 Hct 36.6 % (30.3-42.9) 11/29/19 04:59 MCV 89 fl (79-97) 11/29/19 04:59 MCH 29 pg (28-32) 11/29/19 04:59 MCHC 33 % (30-34) 11/29/19 04:59 RDW 15.3 % (13.2-15.2) H 11/29/19 04:59 Plt Count 219 K/mm3 (140-440) 11/29/19 04:59 Lymph % (Auto) Retail Aide 11/29/19 04:59 Add Manual Diff Complete 11/29/19 04:59 Total Counted 100 11/29/19 04:59 Seg Neutrophils % Retail Aide 11/29/19 04:59 Seg Neuts % (Manual) 34.0 % (40.0-70.0) L 11/29/19 04:59 Band Neutrophils % 0 % 11/29/19 04:59 Lymphocytes % (Manual) 54.0 % (13.4-35.0) H 11/29/19 04:59 Reactive Lymphs % (Man) 0 % 11/29/19 04:59 Monocytes % (Manual) 10.0 % (0.0-7.3) H 11/29/19 04:59 Eosinophils % (Manual) 1.0 % (0.0-4.3) 11/29/19 04:59 Basophils % (Manual) 1.0 % (0.0-1.8) 11/29/19 04:59 Metamyelocytes % 0 % 11/29/19 04:59 Myelocytes % 0 % 11/29/19 04:59 Promyelocytes % 0 % 11/29/19 04:59 Blast Cells % 0 % 11/29/19 04:59 Nucleated RBC % Not Reportable 11/29/19 04:59 Seg Neutrophils # Man 1.7 K/mm3 (1.8-7.7) L 11/29/19 04:59 Band Neutrophils # 0.0 K/mm3 11/29/19 04:59 Lymphocytes # (Manual) 2.7 K/mm3 (1.2-5.4) 11/29/19 04:59 Abs React Lymphs (Man) 0.0 K/mm3 11/29/19 04:59 Monocytes # (Manual) 0.5 K/mm3 (0.0-0.8) 11/29/19 04:59 Eosinophils # (Manual) 0.1 K/mm3 (0.0-0.4) 11/29/19 04:59 Basophils # (Manual) 0.1 K/mm3 (0.0-0.1) 11/29/19 04:59 Metamyelocytes # 0.0 K/mm3 11/29/19 04:59 Myelocytes # 0.0 K/mm3 11/29/19 04:59 Promyelocytes # 0.0 K/mm3 11/29/19 04:59 Blast Cells # 0.0 K/mm3 11/29/19 04:59 WBC Morphology Not Reportable 11/29/19 04:59 Hypersegmented Neuts Not Reportable 11/29/19 04:59 Hyposegmented Neuts Not Reportable 11/29/19 04:59 Hypogranular Neuts Not Reportable 11/29/19 04:59 Smudge Cells Not Reportable 11/29/19 04:59 Toxic Granulation Not Reportable 11/29/19 04:59 Toxic Vacuolation Not Reportable 11/29/19 04:59 Dohle Bodies Not Reportable 11/29/19 04:59 Pelger-Huet Anomaly Not Reportable 11/29/19 04:59 Herlinda Rods Not Reportable 11/29/19 04:59 Platelet Estimate Consistent w auto 11/29/19 04:59 Clumped Platelets Not Reportable 11/29/19 04:59 Plt Clumps, EDTA Not Reportable 11/29/19 04:59 Large Platelets Not Reportable 11/29/19 04:59 Giant Platelets Not Reportable 11/29/19 04:59 Platelet Satelliting Not Reportable 11/29/19 04:59 Plt Morphology Comment Not Reportable 11/29/19 04:59 RBC Morphology Not Reportable 11/29/19 04:59 Dimorphic RBCs Not Reportable 11/29/19 04:59 Polychromasia Not Reportable 11/29/19 04:59 Hypochromasia Not Reportable 11/29/19 04:59 Poikilocytosis Not Reportable 11/29/19 04:59 Anisocytosis Not Reportable 11/29/19 04:59 Microcytosis Not Reportable 11/29/19 04:59 Macrocytosis Not Reportable 11/29/19 04:59 Spherocytes Not Reportable 11/29/19 04:59 Pappenheimer Bodies Not Reportable 11/29/19 04:59 Sickle Cells Not Reportable 11/29/19 04:59 Target Cells Not Reportable 11/29/19 04:59 Tear Drop Cells Not Reportable 11/29/19 04:59 Ovalocytes Rare 11/29/19 04:59 Helmet Cells Not Reportable 11/29/19 04:59 [place] Bodies Not Reportable 11/29/19 04:59 [place] Rings Not Reportable 11/29/19 04:59 [place] Cells Not Reportable 11/29/19 04:59 Bite Cells Not Reportable 11/29/19 04:59 Crenated Cell Not Reportable 11/29/19 04:59 Elliptocytes Not Reportable 11/29/19 04:59 Acanthocytes (Spur) Not Reportable 11/29/19 04:59 Rouleaux Not Reportable 11/29/19 04:59 Hemoglobin C Crystals Not Reportable 11/29/19 04:59 Schistocytes Not Reportable 11/29/19 04:59 Malaria parasites Not Reportable 11/29/19 04:59 Eleazar Bodies Not Reportable 11/29/19 04:59 Hem Pathologist Commnt No 11/29/19 04:59 Sodium 141 mmol/L (137-145) 11/29/19 04:59 Potassium 4.2 mmol/L (3.6-5.0) 11/29/19 04:59 Chloride 104.8 mmol/L (98-107) 11/29/19 04:59 Carbon Dioxide 24 mmol/L (22-30) 11/29/19 04:59 Anion Gap 16 mmol/L 11/29/19 04:59 BUN 9 mg/dL (7-17) 11/29/19 04:59 Creatinine 0.9 mg/dL (0.7-1.2) 11/29/19 04:59 Estimated GFR > 60 ml/min 11/29/19 04:59 BUN/Creatinine Ratio 10 % 11/29/19 04:59 Glucose 88 mg/dL (65-100) 11/29/19 04:59 POC Glucose 121 (70-105) H 11/28/19 23:37 Hemoglobin A1c 5.6 % (4-6) 11/29/19 04:59 Calcium 8.9 mg/dL (8.4-10.2) 11/29/19 04:59 Total Bilirubin 0.40 mg/dL (0.1-1.2) 11/29/19 04:59 AST 39 units/L (5-40) 11/29/19 04:59 ALT 29 units/L (7-56) 11/29/19 04:59 Alkaline Phosphatase 70 units/L (35-129) 11/29/19 04:59 Total Protein 6.2 g/dL (6.3-8.2) L 11/29/19 04:59 Albumin 3.4 g/dL (3.9-5) L 11/29/19 04:59 Albumin/Globulin Ratio 1.2 % 11/29/19 04:59 Triglycerides 88 mg/dL (2-149) 11/29/19 04:59 Cholesterol 175 mg/dL (50-199) 11/29/19 04:59 LDL Cholesterol Direct 115 mg/dL (50-130) 11/29/19 04:59 HDL Cholesterol 44 mg/dL (40-59) 11/29/19 04:59 Cholesterol/HDL Ratio 3.97 % 11/29/19 04:59 TSH 2.090 mlU/mL (0.270-4.200) 11/29/19 04:59 Urine Color Yellow (Yellow) 11/29/19 04:20 Urine Turbidity Clear (Clear) 11/29/19 04:20 Urine pH 5.0 (5.0-7.0) 11/29/19 04:20 Ur Specific [place] 1.013 (1.003-1.030) 11/29/19 04:20 Urine Protein <15 mg/dl mg/dL (Negative) 11/29/19 04:20 Urine Glucose (UA) Neg mg/dL (Negative) 11/29/19 04:20 Urine Ketones Neg mg/dL (Negative) 11/29/19 04:20 Urine Blood Sm (Negative) 11/29/19 04:20 Urine Nitrite Neg (Negative) 11/29/19 04:20 Urine Bilirubin Neg (Negative) 11/29/19 04:20 Urine Urobilinogen < 2.0 mg/dL (<2.0) 11/29/19 04:20 Ur Leukocyte Esterase Neg (Negative) 11/29/19 04:20 Urine WBC (Auto) 4.0 /HPF (0.0-6.0) 11/29/19 04:20 Urine RBC (Auto) 3.0 /HPF (0.0-6.0) 11/29/19 04:20 U Epithel Cells (Auto) 4.0 /HPF (0-13.0) 11/29/19 04:20 Urine Bacteria (Auto) 1+ /HPF (Negative) 11/29/19 04:20 Hyaline Casts 8 /LPF 11/29/19 04:20 Urine Mucus 2+ /HPF 11/29/19 04:20 Last Vital Signs Temp 98.9 F 12/02/19 22:00 Pulse 68 12/02/19 22:00 Resp 18 12/02/19 22:00 BP 136/63 12/02/19 22:00 Pulse Ox 95 12/02/19 22:00
[2019-12-03] MEDS: ASPIRIN EC 81 MG TAB PO SCH (09:10)
[2019-12-03] MEDS: LISINOPRIL 10 MG TAB PO SCH (09:11)
[2019-12-03] MEDS ORDERED: LISINOPRIL 10 MG TAB PO SCH (09:18)
[2019-12-03] MEDS ORDERED: LISINOPRIL 10 MG TAB PO ONE ×2 (10:00→10:30)
[2019-12-03] MEDS ORDERED: busPIRone 5 MG TAB PO SCH (10:00)
[2019-12-03] MEDS ORDERED: LISINOPRIL 20 MG TAB PO SCH ×2 (10:00→11:00)
[2019-12-03] MEDS: buPROPion 100 MG TAB PO SCH ×2 (10:34→21:30)
[2019-12-03] MEDS: SERTRALINE 25 MG TAB PO SCH (10:35)
[2019-12-03] MEDS: ZOLPIDEM 5 MG TAB PO SCH (21:30)
[2019-12-03] MEDS ORDERED: ZOLPIDEM 5 MG TAB PO SCH (22:00)
--- NOTE | 2019-12-04 06:44 | Progress Note ---
Subjective Date of service: 12/04/19 Principal diagnosis: Major Depressive Disorder Subjective Comment: Per Nurse Note: Pt. refused v/s and hs medications. Pt has become paranoid and suspicious. Thereafter, daughters (Jason) called and reports that pt told them that she is no longer going to take medications because we are playing game to medicate her so that we can kill her in her sleep. Daughters requests pt be taken off cholesterol medication because she doesn't do well with it. MD notified. Per Provider Patient interviewed by bedside, intially at 7 AM sleeping without distress and then tired again at 7:50 AM partially awake. Asked patient about yesterdays incident with declining medications. Patient says the medication were becoming too much and she doesnt like how it makes her feel. Most especially she felt sedated most of the day after taking the medication, dizzy and also lack of appetite which was why she declined the medicines. She reports besides yesterday, her mood has been good, no SI and HI and she is not seeing things or hearing voices. Improved sleep noted Reason for continued inpatient treatment: Concern for medication side effects, Patient Zoloft was increased to 50mg day prior, she was also started on Wellbutrin yesterday too. Will discontinue Wellbutrin, and keep Zoloft at 25. Mood instability, to rule out medication side effect and observe for improve. Will adjust medication as clinically indicated. MENTAL STATUS EXAMINATION General Appearance and Behavior: Age appropriate, good hygiene, wearing appropriate clothes, lying in bed, good eye contact, cooperative Cooperation: Participating/engaged Psychomotor Behavior: Unremarkable and within normal limits Mood: Good Affect and affective range: Congruent with mood Thought Process: Fluent/Logical Thought Content: Within reality Speech: Normal volume, Regular rate and rhythm Intellectual Functioning: Average Suicidal Ideation: Denies SI Homicidal Ideation: Denies HI Impulse Control: Impaired Insight and Judgment: Normal insight and judgment Memory: Normal Attention: Normal, Distractible Orientation: Alert, oriented Assessment and Plan - Patient Problems (1) Major depressive disorder Current Visit: Yes Status: Acute (2) Generalized anxiety disorder Current Visit: Yes Status: Acute (3) Insomnia due to psychological stress Current Visit: Yes Status: Acute Medications and Allergies Allergies Allergy/AdvReac Type Severity Reaction Status Date / Time No Known Allergies Allergy Verified 11/28/19 18:05 Treatment Plan: Medication adjustment: stop Buproprion, continue Zoloft 25 mg and, Ambien 5mg for insomnia, Vistaril 50 PRN for anxiety Due to the psychiatric conditions and treatment listed in the Assessment and Plan - the patient requires continued hospitalization. Will continue inpatient treatment to allow for medication adjustment and monitoring. Will continue q15 min safety checks. Will encourage the use of environmental modifications and non-pharmacologic approaches for the management of behavioral and psychological symptoms. Will continue current psych medications Monitor for medication side effects. Most recent medication adjustments: The patient will continue on medications for physical illnesses, and Hospitalist will closely monitor these Continue intensive physical and occupational therapies. Monitor patient's mood, sleep, appetite, and behavior closely. Encourage patient to participate in individual and group therapeutic sessions on the [place]. Will provide a safe and therapeutic environment for patient. The patient agreed on the treatment plan, understood the risk, benefit, alternative treatment, potential consequence of no treatment, and gave informed consent. ELOS 2 days post discharge, outpatient treatment Assessment and Plan - Patient Problems (1) Major depressive disorder Current Visit: Yes Status: Acute (2) Generalized anxiety disorder Current Visit: Yes Status: Acute (3) Insomnia due to psychological stress Current Visit: Yes Status: Acute Medications and Allergies Allergies Allergy/AdvReac Type Severity Reaction Status Date / Time No Known Allergies Allergy Verified 11/28/19 18:05 Home Medications Medication Instructions Recorded Confirmed Last Taken Type Aspirin 81 mg PO DAILY 11/29/19 11/29/19 11/28/19 09:00 History Mirtazapine Solutab 15 tab PO HS 11/29/19 11/29/19 Unknown History NIFEdipine [Procardia Xl] 30 mg PO DAILY 11/29/19 11/29/19 11/28/19 09:00 History Restoril 7.5 mg PO HS PRN 11/29/19 11/29/19 Unknown History Active Meds: Active Medications Aspirin (Halfprin Ec) 81 mg PO QDAY [facility] Last Admin: 12/03/19 09:10 Dose: 81 mg Documented by: Bupropion HCl (Wellbutrin) 100 mg PO BID [facility] Last Admin: 12/03/19 21:30 Dose: 100 mg Documented by: Hydroxyzine Pamoate (Vistaril) 50 mg PO Q6H PRN PRN Reason: Anxiety Lisinopril (Zestril) 20 mg PO QDAY [facility] Sertraline HCl (Zoloft) 25 mg PO QDAY [facility] Last Admin: 12/03/19 10:35 Dose: 25 mg Documented by: Temazepam (Restoril) 15 mg PO QHS PRN PRN Reason: Sleep Ziprasidone (Geodon) 10 mg IM Q6H PRN PRN Reason: Agitation Last Admin: 12/04/19 01:02 Dose: 10 mg Documented by: Zolpidem Tartrate (Ambien) 5 mg PO QHS [facility] Last Admin: 12/03/19 21:30 Dose: 5 mg Documented by: Results - Results Labs/Vitals: Laboratory Last Values WBC 5.0 K/mm3 (4.5-11.0) 11/29/19 04:59 RBC 4.11 M/mm3 (3.65-5.03) 11/29/19 04:59 Hgb 12.1 gm/dl (10.1-14.3) 11/29/19 04:59 Hct 36.6 % (30.3-42.9) 11/29/19 04:59 MCV 89 fl (79-97) 11/29/19 04:59 MCH 29 pg (28-32) 11/29/19 04:59 MCHC 33 % (30-34) 11/29/19 04:59 RDW 15.3 % (13.2-15.2) H 11/29/19 04:59 Plt Count 219 K/mm3 (140-440) 11/29/19 04:59 Lymph % (Auto) Pattern Wheel Maker 11/29/19 04:59 Add Manual Diff Complete 11/29/19 04:59 Total Counted 100 11/29/19 04:59 Seg Neutrophils % Pattern Wheel Maker 11/29/19 04:59 Seg Neuts % (Manual) 34.0 % (40.0-70.0) L 11/29/19 04:59 Band Neutrophils % 0 % 11/29/19 04:59 Lymphocytes % (Manual) 54.0 % (13.4-35.0) H 11/29/19 04:59 Reactive Lymphs % (Man) 0 % 11/29/19 04:59 Monocytes % (Manual) 10.0 % (0.0-7.3) H 11/29/19 04:59 Eosinophils % (Manual) 1.0 % (0.0-4.3) 11/29/19 04:59 Basophils % (Manual) 1.0 % (0.0-1.8) 11/29/19 04:59 Metamyelocytes % 0 % 11/29/19 04:59 Myelocytes % 0 % 11/29/19 04:59 Promyelocytes % 0 % 11/29/19 04:59 Blast Cells % 0 % 11/29/19 04:59 Nucleated RBC % Not Reportable 11/29/19 04:59 Seg Neutrophils # Man 1.7 K/mm3 (1.8-7.7) L 11/29/19 04:59 Band Neutrophils # 0.0 K/mm3 11/29/19 04:59 Lymphocytes # (Manual) 2.7 K/mm3 (1.2-5.4) 11/29/19 04:59 Abs React Lymphs (Man) 0.0 K/mm3 11/29/19 04:59 Monocytes # (Manual) 0.5 K/mm3 (0.0-0.8) 11/29/19 04:59 Eosinophils # (Manual) 0.1 K/mm3 (0.0-0.4) 11/29/19 04:59 Basophils # (Manual) 0.1 K/mm3 (0.0-0.1) 11/29/19 04:59 Metamyelocytes # 0.0 K/mm3 11/29/19 04:59 Myelocytes # 0.0 K/mm3 11/29/19 04:59 Promyelocytes # 0.0 K/mm3 11/29/19 04:59 Blast Cells # 0.0 K/mm3 11/29/19 04:59 WBC Morphology Not Reportable 11/29/19 04:59 Hypersegmented Neuts Not Reportable 11/29/19 04:59 Hyposegmented Neuts Not Reportable 11/29/19 04:59 Hypogranular Neuts Not Reportable 11/29/19 04:59 Smudge Cells Not Reportable 11/29/19 04:59 Toxic Granulation Not Reportable 11/29/19 04:59 Toxic Vacuolation Not Reportable 11/29/19 04:59 Dohle Bodies Not Reportable 11/29/19 04:59 Pelger-Huet Anomaly Not Reportable 11/29/19 04:59 Herlinda Rods Not Reportable 11/29/19 04:59 Platelet Estimate Consistent w auto 11/29/19 04:59 Clumped Platelets Not Reportable 11/29/19 04:59 Plt Clumps, EDTA Not Reportable 11/29/19 04:59 Large Platelets Not Reportable 11/29/19 04:59 Giant Platelets Not Reportable 11/29/19 04:59 Platelet Satelliting Not Reportable 11/29/19 04:59 Plt Morphology Comment Not Reportable 11/29/19 04:59 RBC Morphology Not Reportable 11/29/19 04:59 Dimorphic RBCs Not Reportable 11/29/19 04:59 Polychromasia Not Reportable 11/29/19 04:59 Hypochromasia Not Reportable 11/29/19 04:59 Poikilocytosis Not Reportable 11/29/19 04:59 Anisocytosis Not Reportable 11/29/19 04:59 Microcytosis Not Reportable 11/29/19 04:59 Macrocytosis Not Reportable 11/29/19 04:59 Spherocytes Not Reportable 11/29/19 04:59 Pappenheimer Bodies Not Reportable 11/29/19 04:59 Sickle Cells Not Reportable 11/29/19 04:59 Target Cells Not Reportable 11/29/19 04:59 Tear Drop Cells Not Reportable 11/29/19 04:59 Ovalocytes Rare 11/29/19 04:59 Helmet Cells Not Reportable 11/29/19 04:59 [place] Bodies Not Reportable 11/29/19 04:59 [place] Rings Not Reportable 11/29/19 04:59 [place] Cells Not Reportable 11/29/19 04:59 Bite Cells Not Reportable 11/29/19 04:59 Crenated Cell Not Reportable 11/29/19 04:59 Elliptocytes Not Reportable 11/29/19 04:59 Acanthocytes (Spur) Not Reportable 11/29/19 04:59 Rouleaux Not Reportable 11/29/19 04:59 Hemoglobin C Crystals Not Reportable 11/29/19 04:59 Schistocytes Not Reportable 11/29/19 04:59 Malaria parasites Not Reportable 11/29/19 04:59 Eleazar Bodies Not Reportable 11/29/19 04:59 Hem Pathologist Commnt No 11/29/19 04:59 Sodium 141 mmol/L (137-145) 11/29/19 04:59 Potassium 4.2 mmol/L (3.6-5.0) 11/29/19 04:59 Chloride 104.8 mmol/L (98-107) 11/29/19 04:59 Carbon Dioxide 24 mmol/L (22-30) 11/29/19 04:59 Anion Gap 16 mmol/L 11/29/19 04:59 BUN 9 mg/dL (7-17) 11/29/19 04:59 Creatinine 0.9 mg/dL (0.7-1.2) 11/29/19 04:59 Estimated GFR > 60 ml/min 11/29/19 04:59 BUN/Creatinine Ratio 10 % 11/29/19 04:59 Glucose 88 mg/dL (65-100) 11/29/19 04:59 POC Glucose 121 (70-105) H 11/28/19 23:37 Hemoglobin A1c 5.6 % (4-6) 11/29/19 04:59 Calcium 8.9 mg/dL (8.4-10.2) 11/29/19 04:59 Total Bilirubin 0.40 mg/dL (0.1-1.2) 11/29/19 04:59 AST 39 units/L (5-40) 11/29/19 04:59 ALT 29 units/L (7-56) 11/29/19 04:59 Alkaline Phosphatase 70 units/L (35-129) 11/29/19 04:59 Total Protein 6.2 g/dL (6.3-8.2) L 11/29/19 04:59 Albumin 3.4 g/dL (3.9-5) L 11/29/19 04:59 Albumin/Globulin Ratio 1.2 % 11/29/19 04:59 Triglycerides 88 mg/dL (2-149) 11/29/19 04:59 Cholesterol 175 mg/dL (50-199) 11/29/19 04:59 LDL Cholesterol Direct 115 mg/dL (50-130) 11/29/19 04:59 HDL Cholesterol 44 mg/dL (40-59) 11/29/19 04:59 Cholesterol/HDL Ratio 3.97 % 11/29/19 04:59 TSH 2.090 mlU/mL (0.270-4.200) 11/29/19 04:59 Urine Color Yellow (Yellow) 11/29/19 04:20 Urine Turbidity Clear (Clear) 11/29/19 04:20 Urine pH 5.0 (5.0-7.0) 11/29/19 04:20 Ur Specific [place] 1.013 (1.003-1.030) 11/29/19 04:20 Urine Protein <15 mg/dl mg/dL (Negative) 11/29/19 04:20 Urine Glucose (UA) Neg mg/dL (Negative) 11/29/19 04:20 Urine Ketones Neg mg/dL (Negative) 11/29/19 04:20 Urine Blood Sm (Negative) 11/29/19 04:20 Urine Nitrite Neg (Negative) 11/29/19 04:20 Urine Bilirubin Neg (Negative) 11/29/19 04:20 Urine Urobilinogen < 2.0 mg/dL (<2.0) 11/29/19 04:20 Ur Leukocyte Esterase Neg (Negative) 11/29/19 04:20 Urine WBC (Auto) 4.0 /HPF (0.0-6.0) 11/29/19 04:20 Urine RBC (Auto) 3.0 /HPF (0.0-6.0) 11/29/19 04:20 U Epithel Cells (Auto) 4.0 /HPF (0-13.0) 11/29/19 04:20 Urine Bacteria (Auto) 1+ /HPF (Negative) 11/29/19 04:20 Hyaline Casts 8 /LPF 11/29/19 04:20 Urine Mucus 2+ /HPF 11/29/19 04:20 Last Vital Signs Temp 98.3 F 12/03/19 09:27 Pulse 69 12/03/19 10:36 Resp 18 12/03/19 09:27 BP 128/65 12/03/19 10:36 Pulse Ox 97 12/03/19 10:35
[2019-12-04] MEDS: ASPIRIN EC 81 MG TAB PO SCH (09:52)
[2019-12-04] MEDS: LISINOPRIL 20 MG TAB PO SCH (09:52)
[2019-12-04] MEDS: SERTRALINE 25 MG TAB PO SCH (09:52)
[2019-12-04] MEDS ORDERED: LISINOPRIL 20 MG TAB PO SCH (10:00)
[2019-12-04] MEDS ORDERED: LISINOPRIL 20 MG TAB PO ONE (10:30)
[2019-12-04] MEDS: ZOLPIDEM 5 MG TAB PO SCH (22:01)
--- NOTE | 2019-12-05 06:55 | Progress Note ---
Subjective Date of service: 12/05/19 Principal diagnosis: Major Depressive Disorder Subjective Comment: Per Nurse Note: Pt received at 1930 in activity room watching television, spent her evening in activity room, keeps to her self, appears anxious, but denies having anxiety, pt is alert and oriented x2, calm and cooperative, medication compliant, consumed 100% of her bedtime snacks, denies si/hi, denies a/v/h, denies any pain, mood is depressed, no distress noted, will continue to monitor for safety. safety maintained Per Provider During my assessment this morning, patient describes her mood as good, reports feeling fine, eating good and slept good last night says seems like the medication is working. Patient reports she took a shower yesterday, she ate, change clothes, use lotion and washed her clothes and was also very thankful a bout the medication changes. Patient denies any SI or HI and also denies AVH. When asked if she still thinks other patients in the floor are trying to harm her, she reports no, saying that was only a concern she discussed with me yesterday but so far since, she feels safe. Reason for continued inpatient treatment: Medication adjustments seems to be effective, based on previous side effects concerns raised by patient. She reports improved appetite and reduced day time sleepiness. Will continue to monitor for mood stability and medication tolerability. MENTAL STATUS EXAMINATION General Appearance and Behavior: Age appropriate, good hygiene, wearing appropriate clothes, lying in bed, good eye contact, cooperative Cooperation: Participating/engaged Psychomotor Behavior: Unremarkable and within normal limits Mood: Good Affect and affective range: Congruent with mood Thought Process: Fluent/Logical Thought Content: Within reality Speech: Normal volume, Regular rate and rhythm Intellectual Functioning: Average Suicidal Ideation: Denies SI Homicidal Ideation: Denies HI Impulse Control: Unmpaired Insight and Judgment: Normal insight and judgment Memory: Normal Attention: Normal Orientation: Alert, oriented Assessment and Plan - Patient Problems (1) Major depressive disorder Current Visit: Yes Status: Acute (2) Generalized anxiety disorder Current Visit: Yes Status: Acute (3) Insomnia due to psychological stress Current Visit: Yes Status: Acute Medications and Allergies Allergies Allergy/AdvReac Type Severity Reaction Status Date / Time No Known Allergies Allergy Verified 11/28/19 18:05 Treatment Plan: Continue current medications, and mood stability. Due to the psychiatric conditions and treatment listed in the Assessment and Plan - the patient requires continued hospitalization. Will continue inpatient treatment to allow for medication adjustment and monitoring. Will continue q15 min safety checks. Will encourage the use of environmental modifications and non-pharmacologic approaches for the management of behavioral and psychological symptoms. Will continue current psych medications Monitor for medication side effects. Most recent medication adjustments: The patient will continue on medications for physical illnesses, and Hospitalist will closely monitor these Continue intensive physical and occupational therapies. Monitor patient's mood, sleep, appetite, and behavior closely. Encourage patient to participate in individual and group therapeutic sessions on the [place]. Will provide a safe and therapeutic environment for patient. The patient agreed on the treatment plan, understood the risk, benefit, alternative treatment, potential consequence of no treatment, and gave informed consent. SHAUNAOS 1 days post discharge, outpatient treatment Assessment and Plan - Patient Problems (1) Major depressive disorder Current Visit: Yes Status: Acute (2) Generalized anxiety disorder Current Visit: Yes Status: Acute (3) Insomnia due to psychological stress Current Visit: Yes Status: Acute Medications and Allergies Allergies Allergy/AdvReac Type Severity Reaction Status Date / Time No Known Allergies Allergy Verified 11/28/19 18:05 Home Medications Medication Instructions Recorded Confirmed Last Taken Type Aspirin 81 mg PO DAILY 11/29/19 11/29/19 11/28/19 09:00 History Mirtazapine Solutab 15 tab PO HS 11/29/19 11/29/19 Unknown History NIFEdipine [Procardia Xl] 30 mg PO DAILY 11/29/19 11/29/19 11/28/19 09:00 History Restoril 7.5 mg PO HS PRN 11/29/19 11/29/19 Unknown History Active Meds: Active Medications Aspirin (Halfprin Ec) 81 mg PO QDAY [facility] Last Admin: 12/04/19 09:52 Dose: 81 mg Documented by: Hydroxyzine Pamoate (Vistaril) 50 mg PO Q6H PRN PRN Reason: Anxiety Lisinopril (Zestril) 20 mg PO QDAY [facility] Last Admin: 12/04/19 09:52 Dose: 20 mg Documented by: Sertraline HCl (Zoloft) 25 mg PO QDAY [facility] Last Admin: 12/04/19 09:52 Dose: 25 mg Documented by: Temazepam (Restoril) 15 mg PO QHS PRN PRN Reason: Sleep Ziprasidone (Geodon) 10 mg IM Q6H PRN PRN Reason: Agitation Last Admin: 12/04/19 01:02 Dose: 10 mg Documented by: Zolpidem Tartrate (Ambien) 5 mg PO QHS [facility] Last Admin: 12/04/19 22:01 Dose: 5 mg Documented by: Results - Results Labs/Vitals: Laboratory Last Values WBC 5.0 K/mm3 (4.5-11.0) 11/29/19 04:59 RBC 4.11 M/mm3 (3.65-5.03) 11/29/19 04:59 Hgb 12.1 gm/dl (10.1-14.3) 11/29/19 04:59 Hct 36.6 % (30.3-42.9) 11/29/19 04:59 MCV 89 fl (79-97) 11/29/19 04:59 MCH 29 pg (28-32) 11/29/19 04:59 MCHC 33 % (30-34) 11/29/19 04:59 RDW 15.3 % (13.2-15.2) H 11/29/19 04:59 Plt Count 219 K/mm3 (140-440) 11/29/19 04:59 Lymph % (Auto) Focused Factory Manager 11/29/19 04:59 Add Manual Diff Complete 11/29/19 04:59 Total Counted 100 11/29/19 04:59 Seg Neutrophils % Focused Factory Manager 11/29/19 04:59 Seg Neuts % (Manual) 34.0 % (40.0-70.0) L 11/29/19 04:59 Band Neutrophils % 0 % 11/29/19 04:59 Lymphocytes % (Manual) 54.0 % (13.4-35.0) H 11/29/19 04:59 Reactive Lymphs % (Man) 0 % 11/29/19 04:59 Monocytes % (Manual) 10.0 % (0.0-7.3) H 11/29/19 04:59 Eosinophils % (Manual) 1.0 % (0.0-4.3) 11/29/19 04:59 Basophils % (Manual) 1.0 % (0.0-1.8) 11/29/19 04:59 Metamyelocytes % 0 % 11/29/19 04:59 Myelocytes % 0 % 11/29/19 04:59 Promyelocytes % 0 % 11/29/19 04:59 Blast Cells % 0 % 11/29/19 04:59 Nucleated RBC % Not Reportable 11/29/19 04:59 Seg Neutrophils # Man 1.7 K/mm3 (1.8-7.7) L 11/29/19 04:59 Band Neutrophils # 0.0 K/mm3 11/29/19 04:59 Lymphocytes # (Manual) 2.7 K/mm3 (1.2-5.4) 11/29/19 04:59 Abs React Lymphs (Man) 0.0 K/mm3 11/29/19 04:59 Monocytes # (Manual) 0.5 K/mm3 (0.0-0.8) 11/29/19 04:59 Eosinophils # (Manual) 0.1 K/mm3 (0.0-0.4) 11/29/19 04:59 Basophils # (Manual) 0.1 K/mm3 (0.0-0.1) 11/29/19 04:59 Metamyelocytes # 0.0 K/mm3 11/29/19 04:59 Myelocytes # 0.0 K/mm3 11/29/19 04:59 Promyelocytes # 0.0 K/mm3 11/29/19 04:59 Blast Cells # 0.0 K/mm3 11/29/19 04:59 WBC Morphology Not Reportable 11/29/19 04:59 Hypersegmented Neuts Not Reportable 11/29/19 04:59 Hyposegmented Neuts Not Reportable 11/29/19 04:59 Hypogranular Neuts Not Reportable 11/29/19 04:59 Smudge Cells Not Reportable 11/29/19 04:59 Toxic Granulation Not Reportable 11/29/19 04:59 Toxic Vacuolation Not Reportable 11/29/19 04:59 Dohle Bodies Not Reportable 11/29/19 04:59 Pelger-Huet Anomaly Not Reportable 11/29/19 04:59 Herlinda Rods Not Reportable 11/29/19 04:59 Platelet Estimate Consistent w auto 11/29/19 04:59 Clumped Platelets Not Reportable 11/29/19 04:59 Plt Clumps, EDTA Not Reportable 11/29/19 04:59 Large Platelets Not Reportable 11/29/19 04:59 Giant Platelets Not Reportable 11/29/19 04:59 Platelet Satelliting Not Reportable 11/29/19 04:59 Plt Morphology Comment Not Reportable 11/29/19 04:59 RBC Morphology Not Reportable 11/29/19 04:59 Dimorphic RBCs Not Reportable 11/29/19 04:59 Polychromasia Not Reportable 11/29/19 04:59 Hypochromasia Not Reportable 11/29/19 04:59 Poikilocytosis Not Reportable 11/29/19 04:59 Anisocytosis Not Reportable 11/29/19 04:59 Microcytosis Not Reportable 11/29/19 04:59 Macrocytosis Not Reportable 11/29/19 04:59 Spherocytes Not Reportable 11/29/19 04:59 Pappenheimer Bodies Not Reportable 11/29/19 04:59 Sickle Cells Not Reportable 11/29/19 04:59 Target Cells Not Reportable 11/29/19 04:59 Tear Drop Cells Not Reportable 11/29/19 04:59 Ovalocytes Rare 11/29/19 04:59 Helmet Cells Not Reportable 11/29/19 04:59 [place] Bodies Not Reportable 11/29/19 04:59 [place] Rings Not Reportable 11/29/19 04:59 [place] Cells Not Reportable 11/29/19 04:59 Bite Cells Not Reportable 11/29/19 04:59 Crenated Cell Not Reportable 11/29/19 04:59 Elliptocytes Not Reportable 11/29/19 04:59 Acanthocytes (Spur) Not Reportable 11/29/19 04:59 Rouleaux Not Reportable 11/29/19 04:59 Hemoglobin C Crystals Not Reportable 11/29/19 04:59 Schistocytes Not Reportable 11/29/19 04:59 Malaria parasites Not Reportable 11/29/19 04:59 Eleazar Bodies Not Reportable 11/29/19 04:59 Hem Pathologist Commnt No 11/29/19 04:59 Sodium 141 mmol/L (137-145) 11/29/19 04:59 Potassium 4.2 mmol/L (3.6-5.0) 11/29/19 04:59 Chloride 104.8 mmol/L (98-107) 11/29/19 04:59 Carbon Dioxide 24 mmol/L (22-30) 11/29/19 04:59 Anion Gap 16 mmol/L 11/29/19 04:59 BUN 9 mg/dL (7-17) 11/29/19 04:59 Creatinine 0.9 mg/dL (0.7-1.2) 11/29/19 04:59 Estimated GFR > 60 ml/min 11/29/19 04:59 BUN/Creatinine Ratio 10 % 11/29/19 04:59 Glucose 88 mg/dL (65-100) 11/29/19 04:59 POC Glucose 121 (70-105) H 11/28/19 23:37 Hemoglobin A1c 5.6 % (4-6) 11/29/19 04:59 Calcium 8.9 mg/dL (8.4-10.2) 11/29/19 04:59 Total Bilirubin 0.40 mg/dL (0.1-1.2) 11/29/19 04:59 AST 39 units/L (5-40) 11/29/19 04:59 ALT 29 units/L (7-56) 11/29/19 04:59 Alkaline Phosphatase 70 units/L (35-129) 11/29/19 04:59 Total Protein 6.2 g/dL (6.3-8.2) L 11/29/19 04:59 Albumin 3.4 g/dL (3.9-5) L 11/29/19 04:59 Albumin/Globulin Ratio 1.2 % 11/29/19 04:59 Triglycerides 88 mg/dL (2-149) 11/29/19 04:59 Cholesterol 175 mg/dL (50-199) 11/29/19 04:59 LDL Cholesterol Direct 115 mg/dL (50-130) 11/29/19 04:59 HDL Cholesterol 44 mg/dL (40-59) 11/29/19 04:59 Cholesterol/HDL Ratio 3.97 % 11/29/19 04:59 TSH 2.090 mlU/mL (0.270-4.200) 11/29/19 04:59 Urine Color Yellow (Yellow) 11/29/19 04:20 Urine Turbidity Clear (Clear) 11/29/19 04:20 Urine pH 5.0 (5.0-7.0) 11/29/19 04:20 Ur Specific [place] 1.013 (1.003-1.030) 11/29/19 04:20 Urine Protein <15 mg/dl mg/dL (Negative) 11/29/19 04:20 Urine Glucose (UA) Neg mg/dL (Negative) 11/29/19 04:20 Urine Ketones Neg mg/dL (Negative) 11/29/19 04:20 Urine Blood Sm (Negative) 11/29/19 04:20 Urine Nitrite Neg (Negative) 11/29/19 04:20 Urine Bilirubin Neg (Negative) 11/29/19 04:20 Urine Urobilinogen < 2.0 mg/dL (<2.0) 11/29/19 04:20 Ur Leukocyte Esterase Neg (Negative) 11/29/19 04:20 Urine WBC (Auto) 4.0 /HPF (0.0-6.0) 11/29/19 04:20 Urine RBC (Auto) 3.0 /HPF (0.0-6.0) 11/29/19 04:20 U Epithel Cells (Auto) 4.0 /HPF (0-13.0) 11/29/19 04:20 Urine Bacteria (Auto) 1+ /HPF (Negative) 11/29/19 04:20 Hyaline Casts 8 /LPF 11/29/19 04:20 Urine Mucus 2+ /HPF 11/29/19 04:20 Last Vital Signs Temp 98.5 F 12/04/19 19:44 Pulse 70 12/04/19 19:44 Resp 20 12/04/19 19:44 BP 135/74 12/04/19 19:44 Pulse Ox 98 12/04/19 19:44
[2019-12-05] MEDS: LISINOPRIL 20 MG TAB PO SCH (09:47)
[2019-12-05] MEDS: ASPIRIN EC 81 MG TAB PO SCH (09:48)
[2019-12-05] MEDS: SERTRALINE 25 MG TAB PO SCH (09:48)
[2019-12-05] MEDS ORDERED: cloNIDine 0.1 MG TAB PO PRN (17:03)
[2019-12-05] MEDS: ZOLPIDEM 5 MG TAB PO SCH ×2 (21:05→22:08)
--- NOTE | 2019-12-06 06:56 | Progress Note ---
Subjective Date of service: 12/06/19 Principal diagnosis: Major Depressive Disorder Subjective Comment: Per Nurse Note: Patient stated she was sleepy this evening. She had minimal interaction with a select peer. Patient interacted appropriately with staff. She refused to take the Ambien 5 mg that was scheduled at bedtime. She states she is sleeping too much and doesn't want to take it. Patient agreed if she has difficulty sleeping she will take the ambien. Will continue to monitor patient for safety. Per Provider Patient interviewed by me this A.M. She reports sleeping well without taking her ambien yesterday. No sleep disturbances, no nightmares but reports dizziness after her medications were administered. She reports normal appetite, eating good and interacting well with peers. Patient also denies any SI, HI and better mood stability noted. Reason for continued inpatient treatment: Patient reports improved sleep without ambien, first day without needing sleep medication. Will continue to monitor for mood stability, sleep pattern and medication tolerability. If stable, for another 24 hours, plan to discharge tomorrow. MENTAL STATUS EXAMINATION General Appearance and Behavior: Age appropriate, good hygiene, wearing appropriate clothes, lying in bed, good eye contact, cooperative Cooperation: Participating/engaged Psychomotor Behavior: Unremarkable and within normal limits Mood: Good Affect and affective range: Congruent with mood Thought Process: Fluent/Logical Thought Content: Within reality Speech: Normal volume, Regular rate and rhythm Intellectual Functioning: Average Suicidal Ideation: Denies SI Homicidal Ideation: Denies HI Impulse Control: Unmpaired Insight and Judgment: Normal insight and judgment Memory: Normal Attention: Normal Orientation: Alert, oriented Assessment and Plan - Patient Problems (1) Major depressive disorder Current Visit: Yes Status: Acute (2) Generalized anxiety disorder Current Visit: Yes Status: Acute (3) Insomnia due to psychological stress Current Visit: Yes Status: Acute Medications and Allergies Allergies Allergy/AdvReac Type Severity Reaction Status Date / Time No Known Allergies Allergy Verified 11/28/19 18:05 Treatment Plan: Continue current medications, and mood stability. AMbien PRN for sleep Due to the psychiatric conditions and treatment listed in the Assessment and Plan - the patient requires continued hospitalization. Will continue inpatient treatment to allow for medication adjustment and monitoring. Will continue q15 min safety checks. Will encourage the use of environmental modifications and non-pharmacologic approaches for the management of behavioral and psychological symptoms. Will continue current psych medications Monitor for medication side effects. Most recent medication adjustments: The patient will continue on medications for physical illnesses, and Hospitalist will closely monitor these Continue intensive physical and occupational therapies. Monitor patient's mood, sleep, appetite, and behavior closely. Encourage patient to participate in individual and group therapeutic sessions on the [place]. Will provide a safe and therapeutic environment for patient. The patient agreed on the treatment plan, understood the risk, benefit, alternative treatment, potential consequence of no treatment, and gave informed consent. ELOS 1 days post discharge, outpatient treatment Assessment and Plan - Patient Problems (1) Major depressive disorder Current Visit: Yes Status: Acute (2) Generalized anxiety disorder Current Visit: Yes Status: Acute (3) Insomnia due to psychological stress Current Visit: Yes Status: Acute Medications and Allergies Allergies Allergy/AdvReac Type Severity Reaction Status Date / Time No Known Allergies Allergy Verified 11/28/19 18:05 Home Medications Medication Instructions Recorded Confirmed Last Taken Type Aspirin 81 mg PO DAILY 11/29/19 11/29/19 11/28/19 09:00 History Mirtazapine Solutab 15 tab PO HS 11/29/19 11/29/19 Unknown History NIFEdipine [Procardia Xl] 30 mg PO DAILY 11/29/19 11/29/19 11/28/19 09:00 History Restoril 7.5 mg PO HS PRN 11/29/19 11/29/19 Unknown History Active Meds: Active Medications Aspirin (Halfprin Ec) 81 mg PO QDAY [facility] Last Admin: 12/05/19 09:48 Dose: 81 mg Documented by: Clonidine HCl (Catapres) 0.1 mg PO Q8H PRN PRN Reason: Hypertension Last Admin: 12/05/19 18:00 Dose: 0.1 mg Documented by: Hydroxyzine Pamoate (Vistaril) 50 mg PO Q6H PRN PRN Reason: Anxiety Lisinopril (Zestril) 20 mg PO QDAY [facility] Last Admin: 12/05/19 09:47 Dose: 20 mg Documented by: Sertraline HCl (Zoloft) 25 mg PO QDAY [facility] Last Admin: 12/05/19 09:48 Dose: 25 mg Documented by: Temazepam (Restoril) 15 mg PO QHS PRN PRN Reason: Sleep Ziprasidone (Geodon) 10 mg IM Q6H PRN PRN Reason: Agitation Last Admin: 12/04/19 01:02 Dose: 10 mg Documented by: Zolpidem Tartrate (Ambien) 5 mg PO QHS [facility] Last Admin: 12/05/19 22:08 Dose: Not Given Documented by: Results - Results Labs/Vitals: Laboratory Last Values WBC 5.0 K/mm3 (4.5-11.0) 11/29/19 04:59 RBC 4.11 M/mm3 (3.65-5.03) 11/29/19 04:59 Hgb 12.1 gm/dl (10.1-14.3) 11/29/19 04:59 Hct 36.6 % (30.3-42.9) 11/29/19 04:59 MCV 89 fl (79-97) 11/29/19 04:59 MCH 29 pg (28-32) 11/29/19 04:59 MCHC 33 % (30-34) 11/29/19 04:59 RDW 15.3 % (13.2-15.2) H 11/29/19 04:59 Plt Count 219 K/mm3 (140-440) 11/29/19 04:59 Lymph % (Auto) Protective Signal Repairer 11/29/19 04:59 Add Manual Diff Complete 11/29/19 04:59 Total Counted 100 11/29/19 04:59 Seg Neutrophils % Protective Signal Repairer 11/29/19 04:59 Seg Neuts % (Manual) 34.0 % (40.0-70.0) L 11/29/19 04:59 Band Neutrophils % 0 % 11/29/19 04:59 Lymphocytes % (Manual) 54.0 % (13.4-35.0) H 11/29/19 04:59 Reactive Lymphs % (Man) 0 % 11/29/19 04:59 Monocytes % (Manual) 10.0 % (0.0-7.3) H 11/29/19 04:59 Eosinophils % (Manual) 1.0 % (0.0-4.3) 11/29/19 04:59 Basophils % (Manual) 1.0 % (0.0-1.8) 11/29/19 04:59 Metamyelocytes % 0 % 11/29/19 04:59 Myelocytes % 0 % 11/29/19 04:59 Promyelocytes % 0 % 11/29/19 04:59 Blast Cells % 0 % 11/29/19 04:59 Nucleated RBC % Not Reportable 11/29/19 04:59 Seg Neutrophils # Man 1.7 K/mm3 (1.8-7.7) L 11/29/19 04:59 Band Neutrophils # 0.0 K/mm3 11/29/19 04:59 Lymphocytes # (Manual) 2.7 K/mm3 (1.2-5.4) 11/29/19 04:59 Abs React Lymphs (Man) 0.0 K/mm3 11/29/19 04:59 Monocytes # (Manual) 0.5 K/mm3 (0.0-0.8) 11/29/19 04:59 Eosinophils # (Manual) 0.1 K/mm3 (0.0-0.4) 11/29/19 04:59 Basophils # (Manual) 0.1 K/mm3 (0.0-0.1) 11/29/19 04:59 Metamyelocytes # 0.0 K/mm3 11/29/19 04:59 Myelocytes # 0.0 K/mm3 11/29/19 04:59 Promyelocytes # 0.0 K/mm3 11/29/19 04:59 Blast Cells # 0.0 K/mm3 11/29/19 04:59 WBC Morphology Not Reportable 11/29/19 04:59 Hypersegmented Neuts Not Reportable 11/29/19 04:59 Hyposegmented Neuts Not Reportable 11/29/19 04:59 Hypogranular Neuts Not Reportable 11/29/19 04:59 Smudge Cells Not Reportable 11/29/19 04:59 Toxic Granulation Not Reportable 11/29/19 04:59 Toxic Vacuolation Not Reportable 11/29/19 04:59 Dohle Bodies Not Reportable 11/29/19 04:59 Pelger-Huet Anomaly Not Reportable 11/29/19 04:59 Herlinda Rods Not Reportable 11/29/19 04:59 Platelet Estimate Consistent w auto 11/29/19 04:59 Clumped Platelets Not Reportable 11/29/19 04:59 Plt Clumps, EDTA Not Reportable 11/29/19 04:59 Large Platelets Not Reportable 11/29/19 04:59 Giant Platelets Not Reportable 11/29/19 04:59 Platelet Satelliting Not Reportable 11/29/19 04:59 Plt Morphology Comment Not Reportable 11/29/19 04:59 RBC Morphology Not Reportable 11/29/19 04:59 Dimorphic RBCs Not Reportable 11/29/19 04:59 Polychromasia Not Reportable 11/29/19 04:59 Hypochromasia Not Reportable 11/29/19 04:59 Poikilocytosis Not Reportable 11/29/19 04:59 Anisocytosis Not Reportable 11/29/19 04:59 Microcytosis Not Reportable 11/29/19 04:59 Macrocytosis Not Reportable 11/29/19 04:59 Spherocytes Not Reportable 11/29/19 04:59 Pappenheimer Bodies Not Reportable 11/29/19 04:59 Sickle Cells Not Reportable 11/29/19 04:59 Target Cells Not Reportable 11/29/19 04:59 Tear Drop Cells Not Reportable 11/29/19 04:59 Ovalocytes Rare 11/29/19 04:59 Helmet Cells Not Reportable 11/29/19 04:59 [place] Bodies Not Reportable 11/29/19 04:59 [place] Rings Not Reportable 11/29/19 04:59 [place] Cells Not Reportable 11/29/19 04:59 Bite Cells Not Reportable 11/29/19 04:59 Crenated Cell Not Reportable 11/29/19 04:59 Elliptocytes Not Reportable 11/29/19 04:59 Acanthocytes (Spur) Not Reportable 11/29/19 04:59 Rouleaux Not Reportable 11/29/19 04:59 Hemoglobin C Crystals Not Reportable 11/29/19 04:59 Schistocytes Not Reportable 11/29/19 04:59 Malaria parasites Not Reportable 11/29/19 04:59 Eleazar Bodies Not Reportable 11/29/19 04:59 Hem Pathologist Commnt No 11/29/19 04:59 Sodium 141 mmol/L (137-145) 11/29/19 04:59 Potassium 4.2 mmol/L (3.6-5.0) 11/29/19 04:59 Chloride 104.8 mmol/L (98-107) 11/29/19 04:59 Carbon Dioxide 24 mmol/L (22-30) 11/29/19 04:59 Anion Gap 16 mmol/L 11/29/19 04:59 BUN 9 mg/dL (7-17) 11/29/19 04:59 Creatinine 0.9 mg/dL (0.7-1.2) 11/29/19 04:59 Estimated GFR > 60 ml/min 11/29/19 04:59 BUN/Creatinine Ratio 10 % 11/29/19 04:59 Glucose 88 mg/dL (65-100) 11/29/19 04:59 POC Glucose 121 (70-105) H 11/28/19 23:37 Hemoglobin A1c 5.6 % (4-6) 11/29/19 04:59 Calcium 8.9 mg/dL (8.4-10.2) 11/29/19 04:59 Total Bilirubin 0.40 mg/dL (0.1-1.2) 11/29/19 04:59 AST 39 units/L (5-40) 11/29/19 04:59 ALT 29 units/L (7-56) 11/29/19 04:59 Alkaline Phosphatase 70 units/L (35-129) 11/29/19 04:59 Total Protein 6.2 g/dL (6.3-8.2) L 11/29/19 04:59 Albumin 3.4 g/dL (3.9-5) L 11/29/19 04:59 Albumin/Globulin Ratio 1.2 % 11/29/19 04:59 Triglycerides 88 mg/dL (2-149) 11/29/19 04:59 Cholesterol 175 mg/dL (50-199) 11/29/19 04:59 LDL Cholesterol Direct 115 mg/dL (50-130) 11/29/19 04:59 HDL Cholesterol 44 mg/dL (40-59) 11/29/19 04:59 Cholesterol/HDL Ratio 3.97 % 11/29/19 04:59 TSH 2.090 mlU/mL (0.270-4.200) 11/29/19 04:59 Urine Color Yellow (Yellow) 11/29/19 04:20 Urine Turbidity Clear (Clear) 11/29/19 04:20 Urine pH 5.0 (5.0-7.0) 11/29/19 04:20 Ur Specific [place] 1.013 (1.003-1.030) 11/29/19 04:20 Urine Protein <15 mg/dl mg/dL (Negative) 11/29/19 04:20 Urine Glucose (UA) Neg mg/dL (Negative) 11/29/19 04:20 Urine Ketones Neg mg/dL (Negative) 11/29/19 04:20 Urine Blood Sm (Negative) 11/29/19 04:20 Urine Nitrite Neg (Negative) 11/29/19 04:20 Urine Bilirubin Neg (Negative) 11/29/19 04:20 Urine Urobilinogen < 2.0 mg/dL (<2.0) 11/29/19 04:20 Ur Leukocyte Esterase Neg (Negative) 11/29/19 04:20 Urine WBC (Auto) 4.0 /HPF (0.0-6.0) 11/29/19 04:20 Urine RBC (Auto) 3.0 /HPF (0.0-6.0) 11/29/19 04:20 U Epithel Cells (Auto) 4.0 /HPF (0-13.0) 11/29/19 04:20 Urine Bacteria (Auto) 1+ /HPF (Negative) 11/29/19 04:20 Hyaline Casts 8 /LPF 11/29/19 04:20 Urine Mucus 2+ /HPF 11/29/19 04:20 Last Vital Signs Temp 98.8 F 12/05/19 20:17 Pulse 74 12/05/19 20:17 Resp 20 12/05/19 20:17 BP 169/84 12/05/19 20:17 Pulse Ox 98 12/05/19 20:17
[2019-12-06] MEDS: LISINOPRIL 20 MG TAB PO SCH (09:12)
[2019-12-06] MEDS: SERTRALINE 25 MG TAB PO SCH (09:12)
[2019-12-06] MEDS: ASPIRIN EC 81 MG TAB PO SCH (09:12)
[2019-12-06] MEDS: amLODIPine 10 MG TAB PO SCH (15:09)
[2019-12-06] MEDS ORDERED: ZOLPIDEM 5 MG TAB PO PRN (21:00)
--- NOTE | 2019-12-07 06:52 | Progress Note ---
Subjective Date of service: 12/07/19 Principal diagnosis: Major Depressive Disorder Subjective Comment: Per Nurse Note: Patient presents as hopeful this evening. She is interacting appropriately with peers and staff. She was relieved that the doctor is allowing her to make the decision about the sleeping pill in the evening. There have been no signs of paranoia this evening. She was medication compliant. Will continue to monitor patient for safety. Per Provider Patient reports sleeping well over night consecutively for the second night straight without requiring sleep medication. She reports feeling much better, normal appetite, no AVH, no thoughts of someone trying to harm her and denies SI, HI. She describes her mood today as good. Reason for continued inpatient treatment: Plan to discharge today to family. MENTAL STATUS EXAMINATION General Appearance and Behavior: Age appropriate, good hygiene, wearing appropriate clothes, lying in bed, good eye contact, cooperative Cooperation: Participating/engaged Psychomotor Behavior: Unremarkable and within normal limits Mood: Good Affect and affective range: Congruent with mood Thought Process: Fluent/Logical Thought Content: Within reality Speech: Normal volume, Regular rate and rhythm Intellectual Functioning: Average Suicidal Ideation: Denies SI Homicidal Ideation: Denies HI Impulse Control: Unmpaired Insight and Judgment: Normal insight and judgment Memory: Normal Attention: Normal Orientation: Alert, oriented Assessment and Plan - Patient Problems (1) Major depressive disorder Current Visit: Yes Status: Acute (2) Generalized anxiety disorder Current Visit: Yes Status: Acute (3) Insomnia due to psychological stress Current Visit: Yes Status: Acute Medications and Allergies Allergies Allergy/AdvReac Type Severity Reaction Status Date / Time No Known Allergies Allergy Verified 11/28/19 18:05 Treatment Plan: To discharge today with family. Due to the psychiatric conditions and treatment listed in the Assessment and Plan - the patient requires continued hospitalization. Will continue inpatient treatment to allow for medication adjustment and monitoring. Will continue q15 min safety checks. Will encourage the use of environmental modifications and non-pharmacologic approaches for the management of behavioral and psychological symptoms. Will continue current psych medications Monitor for medication side effects. Most recent medication adjustments: The patient will continue on medications for physical illnesses, and Hospitalist will closely monitor these Continue intensive physical and occupational therapies. Monitor patient's mood, sleep, appetite, and behavior closely. Encourage patient to participate in individual and group therapeutic sessions on the [place]. Will provide a safe and therapeutic environment for patient. The patient agreed on the treatment plan, understood the risk, benefit, alternative treatment, potential consequence of no treatment, and gave informed consent. ELOS 0 days post discharge, outpatient treatment Assessment and Plan - Patient Problems (1) Major depressive disorder Current Visit: Yes Status: Acute (2) Generalized anxiety disorder Current Visit: Yes Status: Acute (3) Insomnia due to psychological stress Current Visit: Yes Status: Acute Medications and Allergies Allergies Allergy/AdvReac Type Severity Reaction Status Date / Time No Known Allergies Allergy Verified 11/28/19 18:05 Home Medications Medication Instructions Recorded Confirmed Last Taken Type Aspirin 81 mg PO DAILY 11/29/19 11/29/19 11/28/19 09:00 History Mirtazapine Solutab 15 tab PO HS 11/29/19 11/29/19 Unknown History NIFEdipine [Procardia Xl] 30 mg PO DAILY 11/29/19 11/29/19 11/28/19 09:00 History Restoril 7.5 mg PO HS PRN 11/29/19 11/29/19 Unknown History Active Meds: Active Medications Amlodipine Besylate (Amlodipine) 10 mg PO QDAY [facility] Last Admin: 12/06/19 15:09 Dose: 10 mg Documented by: Aspirin (Halfprin Ec) 81 mg PO QDAY [facility] Last Admin: 12/06/19 09:12 Dose: 81 mg Documented by: Clonidine HCl (Catapres) 0.1 mg PO Q8H PRN PRN Reason: Hypertension Last Admin: 12/05/19 18:00 Dose: 0.1 mg Documented by: Hydroxyzine Pamoate (Vistaril) 50 mg PO Q6H PRN PRN Reason: Anxiety Lisinopril (Zestril) 20 mg PO QDAY [facility] Last Admin: 12/06/19 09:12 Dose: 20 mg Documented by: Sertraline HCl (Zoloft) 25 mg PO QDAY [facility] Last Admin: 12/06/19 09:12 Dose: 25 mg Documented by: Temazepam (Restoril) 15 mg PO QHS PRN PRN Reason: Sleep Ziprasidone (Geodon) 10 mg IM Q6H PRN PRN Reason: Agitation Last Admin: 12/04/19 01:02 Dose: 10 mg Documented by: Zolpidem Tartrate (Ambien) 5 mg PO QHS PRN PRN Reason: Insomnia Results - Results Labs/Vitals: Laboratory Last Values WBC 5.0 K/mm3 (4.5-11.0) 11/29/19 04:59 RBC 4.11 M/mm3 (3.65-5.03) 11/29/19 04:59 Hgb 12.1 gm/dl (10.1-14.3) 11/29/19 04:59 Hct 36.6 % (30.3-42.9) 11/29/19 04:59 MCV 89 fl (79-97) 11/29/19 04:59 MCH 29 pg (28-32) 11/29/19 04:59 MCHC 33 % (30-34) 11/29/19 04:59 RDW 15.3 % (13.2-15.2) H 11/29/19 04:59 Plt Count 219 K/mm3 (140-440) 11/29/19 04:59 Lymph % (Auto) Inspector Receiving 11/29/19 04:59 Add Manual Diff Complete 11/29/19 04:59 Total Counted 100 11/29/19 04:59 Seg Neutrophils % Inspector Receiving 11/29/19 04:59 Seg Neuts % (Manual) 34.0 % (40.0-70.0) L 11/29/19 04:59 Band Neutrophils % 0 % 11/29/19 04:59 Lymphocytes % (Manual) 54.0 % (13.4-35.0) H 11/29/19 04:59 Reactive Lymphs % (Man) 0 % 11/29/19 04:59 Monocytes % (Manual) 10.0 % (0.0-7.3) H 11/29/19 04:59 Eosinophils % (Manual) 1.0 % (0.0-4.3) 11/29/19 04:59 Basophils % (Manual) 1.0 % (0.0-1.8) 11/29/19 04:59 Metamyelocytes % 0 % 11/29/19 04:59 Myelocytes % 0 % 11/29/19 04:59 Promyelocytes % 0 % 11/29/19 04:59 Blast Cells % 0 % 11/29/19 04:59 Nucleated RBC % Not Reportable 11/29/19 04:59 Seg Neutrophils # Man 1.7 K/mm3 (1.8-7.7) L 11/29/19 04:59 Band Neutrophils # 0.0 K/mm3 04/29/20 04:59 Lymphocytes # (Manual) 2.7 K/mm3 (1.2-5.4) 11/29/19 04:59 Abs React Lymphs (Man) 0.0 K/mm3 11/29/19 04:59 Monocytes # (Manual) 0.5 K/mm3 (0.0-0.8) 11/29/19 04:59 Eosinophils # (Manual) 0.1 K/mm3 (0.0-0.4) 11/29/19 04:59 Basophils # (Manual) 0.1 K/mm3 (0.0-0.1) 11/29/19 04:59 Metamyelocytes # 0.0 K/mm3 11/29/19 04:59 Myelocytes # 0.0 K/mm3 11/29/19 04:59 Promyelocytes # 0.0 K/mm3 11/29/19 04:59 Blast Cells # 0.0 K/mm3 11/29/19 04:59 WBC Morphology Not Reportable 11/29/19 04:59 Hypersegmented Neuts Not Reportable 11/29/19 04:59 Hyposegmented Neuts Not Reportable 11/29/19 04:59 Hypogranular Neuts Not Reportable 11/29/19 04:59 Smudge Cells Not Reportable 11/29/19 04:59 Toxic Granulation Not Reportable 11/29/19 04:59 Toxic Vacuolation Not Reportable 11/29/19 04:59 Dohle Bodies Not Reportable 11/29/19 04:59 Pelger-Huet Anomaly Not Reportable 11/29/19 04:59 Herlinda Rods Not Reportable 11/29/19 04:59 Platelet Estimate Consistent w auto 11/29/19 04:59 Clumped Platelets Not Reportable 11/29/19 04:59 Plt Clumps, EDTA Not Reportable 11/29/19 04:59 Large Platelets Not Reportable 11/29/19 04:59 Giant Platelets Not Reportable 11/29/19 04:59 Platelet Satelliting Not Reportable 11/29/19 04:59 Plt Morphology Comment Not Reportable 11/29/19 04:59 RBC Morphology Not Reportable 11/29/19 04:59 Dimorphic RBCs Not Reportable 11/29/19 04:59 Polychromasia Not Reportable 11/29/19 04:59 Hypochromasia Not Reportable 11/29/19 04:59 Poikilocytosis Not Reportable 11/29/19 04:59 Anisocytosis Not Reportable 11/29/19 04:59 Microcytosis Not Reportable 11/29/19 04:59 Macrocytosis Not Reportable 11/29/19 04:59 Spherocytes Not Reportable 11/29/19 04:59 Pappenheimer Bodies Not Reportable 11/29/19 04:59 Sickle Cells Not Reportable 11/29/19 04:59 Target Cells Not Reportable 11/29/19 04:59 Tear Drop Cells Not Reportable 11/29/19 04:59 Ovalocytes Rare 11/29/19 04:59 Helmet Cells Not Reportable 11/29/19 04:59 [place] Bodies Not Reportable 11/29/19 04:59 [place] Rings Not Reportable 11/29/19 04:59 [place] Cells Not Reportable 11/29/19 04:59 Bite Cells Not Reportable 11/29/19 04:59 Crenated Cell Not Reportable 11/29/19 04:59 Elliptocytes Not Reportable 11/29/19 04:59 Acanthocytes (Spur) Not Reportable 11/29/19 04:59 Rouleaux Not Reportable 11/29/19 04:59 Hemoglobin C Crystals Not Reportable 11/29/19 04:59 Schistocytes Not Reportable 11/29/19 04:59 Malaria parasites Not Reportable 11/29/19 04:59 [place] Bodies Not Reportable 11/29/19 04:59 Hem Pathologist Commnt No 11/29/19 04:59 Sodium 141 mmol/L (137-145) 11/29/19 04:59 Potassium 4.2 mmol/L (3.6-5.0) 11/29/19 04:59 Chloride 104.8 mmol/L (98-107) 11/29/19 04:59 Carbon Dioxide 24 mmol/L (22-30) 11/29/19 04:59 Anion Gap 16 mmol/L 11/29/19 04:59 BUN 9 mg/dL (7-17) 11/29/19 04:59 Creatinine 0.9 mg/dL (0.7-1.2) 11/29/19 04:59 Estimated GFR > 60 ml/min 11/29/19 04:59 BUN/Creatinine Ratio 10 % 11/29/19 04:59 Glucose 88 mg/dL (65-100) 11/29/19 04:59 POC Glucose 121 (70-105) H 11/28/19 23:37 Hemoglobin A1c 5.6 % (4-6) 11/29/19 04:59 Calcium 8.9 mg/dL (8.4-10.2) 11/29/19 04:59 Total Bilirubin 0.40 mg/dL (0.1-1.2) 11/29/19 04:59 AST 39 units/L (5-40) 11/29/19 04:59 ALT 29 units/L (7-56) 11/29/19 04:59 Alkaline Phosphatase 70 units/L (35-129) 11/29/19 04:59 Total Protein 6.2 g/dL (6.3-8.2) L 11/29/19 04:59 Albumin 3.4 g/dL (3.9-5) L 11/29/19 04:59 Albumin/Globulin Ratio 1.2 % 11/29/19 04:59 Triglycerides 88 mg/dL (2-149) 11/29/19 04:59 Cholesterol 175 mg/dL (50-199) 11/29/19 04:59 LDL Cholesterol Direct 115 mg/dL (50-130) 11/29/19 04:59 HDL Cholesterol 44 mg/dL (40-59) 11/29/19 04:59 Cholesterol/HDL Ratio 3.97 % 11/29/19 04:59 TSH 2.090 mlU/mL (0.270-4.200) 11/29/19 04:59 Urine Color Yellow (Yellow) 11/29/19 04:20 Urine Turbidity Clear (Clear) 11/29/19 04:20 Urine pH 5.0 (5.0-7.0) 11/29/19 04:20 Ur Specific [place] 1.013 (1.003-1.030) 11/29/19 04:20 Urine Protein <15 mg/dl mg/dL (Negative) 11/29/19 04:20 Urine Glucose (UA) Neg mg/dL (Negative) 11/29/19 04:20 Urine Ketones Neg mg/dL (Negative) 11/29/19 04:20 Urine Blood Sm (Negative) 11/29/19 04:20 Urine Nitrite Neg (Negative) 11/29/19 04:20 Urine Bilirubin Neg (Negative) 11/29/19 04:20 Urine Urobilinogen < 2.0 mg/dL (<2.0) 11/29/19 04:20 Ur Leukocyte Esterase Neg (Negative) 11/29/19 04:20 Urine WBC (Auto) 4.0 /HPF (0.0-6.0) 11/29/19 04:20 Urine RBC (Auto) 3.0 /HPF (0.0-6.0) 11/29/19 04:20 U Epithel Cells (Auto) 4.0 /HPF (0-13.0) 11/29/19 04:20 Urine Bacteria (Auto) 1+ /HPF (Negative) 11/29/19 04:20 Hyaline Casts 8 /LPF 11/29/19 04:20 Urine Mucus 2+ /HPF 11/29/19 04:20 Last Vital Signs Temp 98.9 F 12/06/19 22:00 Pulse 69 12/06/19 22:00 Resp 18 12/06/19 22:00 BP 152/78 12/06/19 22:00 Pulse Ox 97 12/06/19 22:00
[2019-12-07 09:05] VITALS: BP 151/80
--- NOTE | 2019-12-07 09:41 | Discharge Summary ---
Providers - Providers Date of Admission: 11/28/19 23:10 Date of discharge: 12/07/19 Attending physician: ANNELIESE LO MD 11/28/19 18:09 Consult to Physician [CONS] Routine Comment: Consulting Provider: KOURTNEY GALARZA Physician Instructions: Reason For Exam: manage medical conditions Primary care physician: MACHINE [employer]TER Hospitalization Reason for admission: Danger to self Condition: Good Hospital course: The patient was provided inpatient psychiatric treatment with safe and supportive environment, group/individual therapy, psychiatric medication, medication adjustment, adverse effect monitor, medical evaluation, medical treatment, social service assessment, social support meeting, placement asse ssment and psycho-education. The patients mood, cognition, behavior, motivation, compliance to treatment and appreciation on family/social support are improved and stabilized. At the time of discharge, the patient had no suicidal ideas, no homicidal ideas, no aggressive thoughts, no endangering behavior and no debilitating adverse effects. The patient agreed on the treatment plan, understood the risk, benefit, alternative treatment, potential consequence of no treatment, and gave informed consent. Disposition: DC-01 TO HOME OR SELFCARE Allergies/Adverse Reactions: Allergies No Known Allergies Allergy (Verified 11/28/19 18:05) Vital Signs: Last Vital Signs Temp 98.9 F 12/07/19 07:19 Pulse 65 12/07/19 07:19 Resp 18 12/07/19 07:19 BP 151/80 12/07/19 07:19 Pulse Ox 97 12/07/19 07:19 Last Lab: Laboratory Last Values WBC 5.0 K/mm3 (4.5-11.0) 11/29/19 04:59 RBC 4.11 M/mm3 (3.65-5.03) 11/29/19 04:59 Hgb 12.1 gm/dl (10.1-14.3) 11/29/19 04:59 Hct 36.6 % (30.3-42.9) 11/29/19 04:59 MCV 89 fl (79-97) 11/29/19 04:59 MCH 29 pg (28-32) 11/29/19 04:59 MCHC 33 % (30-34) 11/29/19 04:59 RDW 15.3 % (13.2-15.2) H 11/29/19 04:59 Plt Count 219 K/mm3 (140-440) 11/29/19 04:59 Lymph % (Auto) Video Photographer 11/29/19 04:59 Add Manual Diff Complete 11/29/19 04:59 Total Counted 100 11/29/19 04:59 Seg Neutrophils % Video Photographer 11/29/19 04:59 Seg Neuts % (Manual) 34.0 % (40.0-70.0) L 11/29/19 04:59 Band Neutrophils % 0 % 11/29/19 04:59 Lymphocytes % (Manual) 54.0 % (13.4-35.0) H 11/29/19 04:59 Reactive Lymphs % (Man) 0 % 11/29/19 04:59 Monocytes % (Manual) 10.0 % (0.0-7.3) H 11/29/19 04:59 Eosinophils % (Manual) 1.0 % (0.0-4.3) 11/29/19 04:59 Basophils % (Manual) 1.0 % (0.0-1.8) 11/29/19 04:59 Metamyelocytes % 0 % 11/29/19 04:59 Myelocytes % 0 % 11/29/19 04:59 Promyelocytes % 0 % 11/29/19 04:59 Blast Cells % 0 % 11/29/19 04:59 Nucleated RBC % Not Reportable 11/29/19 04:59 Seg Neutrophils # Man 1.7 K/mm3 (1.8-7.7) L 11/29/19 04:59 Band Neutrophils # 0.0 K/mm3 11/29/19 04:59 Lymphocytes # (Manual) 2.7 K/mm3 (1.2-5.4) 11/29/19 04:59 Abs React Lymphs (Man) 0.0 K/mm3 11/29/19 04:59 Monocytes # (Manual) 0.5 K/mm3 (0.0-0.8) 11/29/19 04:59 Eosinophils # (Manual) 0.1 K/mm3 (0.0-0.4) 11/29/19 04:59 Basophils # (Manual) 0.1 K/mm3 (0.0-0.1) 11/29/19 04:59 Metamyelocytes # 0.0 K/mm3 11/29/19 04:59 Myelocytes # 0.0 K/mm3 11/29/19 04:59 Promyelocytes # 0.0 K/mm3 11/29/19 04:59 Blast Cells # 0.0 K/mm3 11/29/19 04:59 WBC Morphology Not Reportable 11/29/19 04:59 Hypersegmented Neuts Not Reportable 11/29/19 04:59 Hyposegmented Neuts Not Reportable 11/29/19 04:59 Hypogranular Neuts Not Reportable 11/29/19 04:59 Smudge Cells Not Reportable 11/29/19 04:59 Toxic Granulation Not Reportable 11/29/19 04:59 Toxic Vacuolation Not Reportable 11/29/19 04:59 Dohle Bodies Not Reportable 11/29/19 04:59 Pelger-Huet Anomaly Not Reportable 11/29/19 04:59 Herlinda Rods Not Reportable 11/29/19 04:59 Platelet Estimate Consistent w auto 11/29/19 04:59 Clumped Platelets Not Reportable 11/29/19 04:59 Plt Clumps, EDTA Not Reportable 11/29/19 04:59 Large Platelets Not Reportable 11/29/19 04:59 Giant Platelets Not Reportable 11/29/19 04:59 Platelet Satelliting Not Reportable 11/29/19 04:59 Plt Morphology Comment Not Reportable 11/29/19 04:59 RBC Morphology Not Reportable 11/29/19 04:59 Dimorphic RBCs Not Reportable 11/29/19 04:59 Polychromasia Not Reportable 11/29/19 04:59 Hypochromasia Not Reportable 11/29/19 04:59 Poikilocytosis Not Reportable 11/29/19 04:59 Anisocytosis Not Reportable 11/29/19 04:59 Microcytosis Not Reportable 11/29/19 04:59 Macrocytosis Not Reportable 11/29/19 04:59 Spherocytes Not Reportable 11/29/19 04:59 Pappenheimer Bodies Not Reportable 11/29/19 04:59 Sickle Cells Not Reportable 11/29/19 04:59 Target Cells Not Reportable 11/29/19 04:59 Tear Drop Cells Not Reportable 11/29/19 04:59 Ovalocytes Rare 11/29/19 04:59 Helmet Cells Not Reportable 11/29/19 04:59 [place] Bodies Not Reportable 11/29/19 04:59 [place] Rings Not Reportable 11/29/19 04:59 [place] Cells Not Reportable 11/29/19 04:59 Bite Cells Not Reportable 11/29/19 04:59 Crenated Cell Not Reportable 11/29/19 04:59 Elliptocytes Not Reportable 11/29/19 04:59 Acanthocytes (Spur) Not Reportable 11/29/19 04:59 Rouleaux Not Reportable 11/29/19 04:59 Hemoglobin C Crystals Not Reportable 11/29/19 04:59 Schistocytes Not Reportable 11/29/19 04:59 Malaria parasites Not Reportable 11/29/19 04:59 Eleazar Bodies Not Reportable 11/29/19 04:59 Hem Pathologist Commnt No 11/29/19 04:59 Sodium 141 mmol/L (137-145) 11/29/19 04:59 Potassium 4.2 mmol/L (3.6-5.0) 11/29/19 04:59 Chloride 104.8 mmol/L (98-107) 11/29/19 04:59 Carbon Dioxide 24 mmol/L (22-30) 11/29/19 04:59 Anion Gap 16 mmol/L 11/29/19 04:59 BUN 9 mg/dL (7-17) 11/29/19 04:59 Creatinine 0.9 mg/dL (0.7-1.2) 11/29/19 04:59 Estimated GFR > 60 ml/min 11/29/19 04:59 BUN/Creatinine Ratio 10 % 11/29/19 04:59 Glucose 88 mg/dL (65-100) 11/29/19 04:59 POC Glucose 121 (70-105) H 11/28/19 23:37 Hemoglobin A1c 5.6 % (4-6) 11/29/19 04:59 Calcium 8.9 mg/dL (8.4-10.2) 11/29/19 04:59 Total Bilirubin 0.40 mg/dL (0.1-1.2) 11/29/19 04:59 AST 39 units/L (5-40) 11/29/19 04:59 ALT 29 units/L (7-56) 11/29/19 04:59 Alkaline Phosphatase 70 units/L (35-129) 11/29/19 04:59 Total Protein 6.2 g/dL (6.3-8.2) L 11/29/19 04:59 Albumin 3.4 g/dL (3.9-5) L 11/29/19 04:59 Albumin/Globulin Ratio 1.2 % 11/29/19 04:59 Triglycerides 88 mg/dL (2-149) 11/29/19 04:59 Cholesterol 175 mg/dL (50-199) 11/29/19 04:59 LDL Cholesterol Direct 115 mg/dL (50-130) 11/29/19 04:59 HDL Cholesterol 44 mg/dL (40-59) 11/29/19 04:59 Cholesterol/HDL Ratio 3.97 % 11/29/19 04:59 TSH 2.090 mlU/mL (0.270-4.200) 11/29/19 04:59 Urine Color Yellow (Yellow) 11/29/19 04:20 Urine Turbidity Clear (Clear) 11/29/19 04:20 Urine pH 5.0 (5.0-7.0) 11/29/19 04:20 Ur Specific [place] 1.013 (1.003-1.030) 11/29/19 04:20 Urine Protein <15 mg/dl mg/dL (Negative) 11/29/19 04:20 Urine Glucose (UA) Neg mg/dL (Negative) 11/29/19 04:20 Urine Ketones Neg mg/dL (Negative) 11/29/19 04:20 Urine Blood Sm (Negative) 11/29/19 04:20 Urine Nitrite Neg (Negative) 11/29/19 04:20 Urine Bilirubin Neg (Negative) 11/29/19 04:20 Urine Urobilinogen < 2.0 mg/dL (<2.0) 11/29/19 04:20 Ur Leukocyte Esterase Neg (Negative) 11/29/19 04:20 Urine WBC (Auto) 4.0 /HPF (0.0-6.0) 11/29/19 04:20 Urine RBC (Auto) 3.0 /HPF (0.0-6.0) 11/29/19 04:20 U Epithel Cells (Auto) 4.0 /HPF (0-13.0) 11/29/19 04:20 Urine Bacteria (Auto) 1+ /HPF (Negative) 11/29/19 04:20 Hyaline Casts 8 /LPF 11/29/19 04:20 Urine Mucus 2+ /HPF 11/29/19 04:20 - Discharge Diagnoses (1) Major depressive disorder Status: Acute (2) Generalized anxiety disorder Status: Acute (3) Insomnia due to psychological stress Status: Acute Core Measure Documentation - Palliative Care Palliative Care/ Comfort Measures: Not Applicable - Core Measures Any of the following diagnoses?: none Exam - Constitutional Vitals: Temp Pulse Resp BP Pulse Ox 98.9 F 65 18 151/80 97 12/07/19 07:19 12/07/19 07:19 12/07/19 07:19 12/07/19 07:19 12/07/19 07:19 - EENT Eyes: Present: PERRL, EOM intact ENT: hearing intact, clear oral mucosa - Neck Neck: Present: supple, normal ROM - Respiratory Respiratory effort: normal - Abdominal Female genitourinary: Present: normal - Integumentary Integumentary: Present: clear, warm, dry Plan Activity: no restrictions Weight Bearing Status: Weight Bear as Tolerated Care Plan Goals: Maintain good and stable mental health. Plan of Treatment: The patient should be compliant with medications, not to use drugs and not to drink alcohol. The patient understands that if suicidal ideas, homicidal ideas, or any endangering thoughts arise, the patient should immediately seek for emergent assistance including but not limited to crisis hot line and emergency room. Follow up with outpatient Psychiatrist and PCP within 7 - 14 days of discharge. Follow up with: PRIMARY CARE,MD [Primary Care Provider] - 7 Days Prescriptions: hydrOXYzine PAMOATE [Vistaril] 50 mg PO Q6H PRN #30 capsule PRN Reason: Anxiety Sertraline [Zoloft] 25 mg PO QDAY #30 tablet
[2019-12-07] MEDS: amLODIPine 10 MG TAB PO SCH (10:10)
[2019-12-07] MEDS: SERTRALINE 25 MG TAB PO SCH (10:10)
[2019-12-07] MEDS: LISINOPRIL 20 MG TAB PO SCH (10:11)
[2019-12-07] MEDS: ASPIRIN EC 81 MG TAB PO SCH (10:11)
== END 2019-12-07 13:10 | disposition home or self-care (01) | DRG 885 ==
LOC: UNDOADMIN 17:34 → 3A 17:34 → 5A 23:10
PROVIDERS: ADMIT Psychiatry & Neurology Psychiatry; ATTEND Psychiatry & Neurology Psychiatry
DX: F32.2 Major depressive disorder, single episode, severe without psychotic features (principal); I10 Essential (primary) hypertension; F41.1 Generalized anxiety disorder; F51.04 Psychophysiologic insomnia; Z86.73 Personal history of transient ischemic attack (TIA), and cerebral infarction without residual deficits; Z79.82 Long term (current) use of aspirin; Z79.899 Other long term (current) drug therapy
CPT/HCPCS: 36415; 80053; 80061; 81001; 82962; 83036; 84443; 85007; 85025; G0378; A9270-GY; J3486